=== PATIENT | female | born 1960 | race African-American/Black ===

== ENCOUNTER 2021-08-20 03:56 | Inpatient (IN) | payer MEDICARE, OTHER ==
[~2021-08-20] VITALS: Ht 162.6 cm; Wt 109.8 kg
--- NOTE | 2021-08-20 04:05 | NUR ---
Pt brought straight back to room ED1A via RA due to SOB s/p missed dialysis appt. Pt was placed onto gurney in pos of comfort and immediately connected to bedside monitor and initial VS obtained. Pt has good color and appearance, forehead feels slightly warmer than normal and pt complaining of being too warm, thermostat reduced to accommodate pt. Pt initally hypertensive and boarderline tachycardic with HR in high 90s. PE WNL besides bilat BKA and being nonambulatory. Pt resting comfortably and complaining of moderate to severe pain 04/01.
--- NOTE | 2021-08-20 04:15 | NUR ---
20g IV started on Lt AC without difficulty. Pt tolerated well.
[2021-08-20 04:33] LABS: HEMATOCRIT 34.1 % (31.2-41.9); MEAN CORPUSCULAR HEMOGLOBIN 27.1 uug (24.7-32.8); PLATELET COUNT (AUTO) 134 K/uL (179-408)
[2021-08-20 04:41] LABS: BILIRUBIN,DIRECT 0.1 mg/dL (0.0-0.2); BILIRUBIN,TOTAL 0.4 mg/dL (0.2-1.0); CREATININE 5.9 mg/dL (0.6-1.3); POTASSIUM 5.5 mmol/L (3.5-5.1); TOTAL PROTEIN, SERUM 7.3 g/dL (6.4-8.2)
--- NOTE | 2021-08-20 04:45 | NUR ---
PATIENT DOES NOT RECALL HOME MEDICATION AT THIS TIME.
[2021-08-20] MEDS ORDERED: CALCIUM GLUCONATE IV 1 GM in IV DEXTROSE 5% 50 ML IV ONE (05:30)
[2021-08-20] MEDS ORDERED: INSULIN REGULAR, HUMAN 5 UNIT in IV NORMAL SALINE 100 ML IV ONE (05:30)
[2021-08-20] MEDS ORDERED: HYDROCODONE/APAP 10-325 MG TABLET PO ONE (05:30)
[2021-08-20] MEDS ORDERED: DEXTROSE 50% 50 ML DISP.SYRIN IV ONE (05:30)
[2021-08-20] MEDS ORDERED: SODIUM POLYSTYRENE SULFONATE 15 G/60 ML LIQUID UDC PO ONE (05:30)
[2021-08-20] MEDS ORDERED: CALCIUM GLUCONATE 1 GM/10 ML VIAL IV ONE (05:40)
[2021-08-20] MEDS ORDERED: HYDROCODONE/APAP 10-325 MG TABLET ONE ×2 (05:41→20:44)
[2021-08-20] MEDS ORDERED: DEXTROSE 50% 50 ML DISP.SYRIN ONE (05:42)
[2021-08-20] MEDS ORDERED: SODIUM POLYSTYRENE SULFONATE 15 G/60 ML LIQUID UDC ONE ×2 (05:42→06:02)
[2021-08-20] MEDS: ONDANSETRON 4 MG/2 ML VIAL IV PRN ×5 (06:44→11:45)
[2021-08-20] MEDS: ACETAMINOPHEN 325 MG TABLET PO PRN (06:57)
[2021-08-20] MEDS ORDERED: ONDANSETRON 4 MG/2 ML VIAL ONE (06:58)
[2021-08-20] MEDS ORDERED: ACETAMINOPHEN 325 MG TABLET ONE (06:59)
--- NOTE | 2021-08-20 07:10 | NUR ---
Pt resting in bed, speaking on the phone, placed pt on 02 via N/C, Room air 02 sat 90%. O2 sat increased to 97%.
--- NOTE | 2021-08-20 07:45 | NUR ---
Pt is stable with high BP but asymtomatic and only complaining of moderate pain in Lt shoulder and neck but is feeling much better with marked improvement of condition. Pt will be admitted for dialysis to [facility]. Pt is in a holding pattern awaiting room assignment and transport upstairs.
--- NOTE | 2021-08-20 08:10 | NUR ---
Patient is resting comfortably in bed with eyes closed, NAD noted.
--- NOTE | 2021-08-20 09:01 | NUR ---
Pt resting in bed, easily arousable. NO SOB noted on nasal canula.
[2021-08-20] MEDS ORDERED: DEXTROSE 50% 50 ML DISP.SYRIN IV PRN (11:30)
[2021-08-20] MEDS ORDERED: DEXAMETHASONE 5 MG/5 ML LIQUID UDC PO ONE (11:30)
[2021-08-20] MEDS: BLOOD SUGAR DIAGNOSTIC 1 EACH STRIP VI SCH ×3 (11:44→21:14)
--- NOTE | 2021-08-20 12:30 | NUR ---
Lunch tray provided and pt ate 100%, w/ good appetite. Denies pain, and SOB at this time.
[2021-08-20] MEDS: DEXAMETHASONE SOD PHOSPHATE 4 MG INJ IV SCH (13:50)
[2021-08-20] MEDS ORDERED: DEXAMETHASONE SOD PHOSPHATE 10 MG INJ ONE (13:53)
--- NOTE | 2021-08-20 14:38 | NUR ---
Spoke to wire winderflaquito ETA shortly.
--- NOTE | 2021-08-20 15:54 | NUR ---
Pt is resting in bed, speaking on the phone, NAD noted at this time. Awaiting for hemodiaylsis.
--- NOTE | 2021-08-20 16:48 | NUR ---
Taty shower screen installer at the bedside.
--- NOTE | 2021-08-20 16:50 | NUR ---
Hemodialysis in progress, pt tolorating well.
--- NOTE | 2021-08-20 17:30 | NUR ---
Pt c/o generalized pain, S medina lid.
[2021-08-20] MEDS: Z GUARD REMEDY PASTE 57 GM TUBE TOP PRN (17:46)
--- NOTE | 2021-08-20 17:54 | NUR ---
Ru Kennedy called back, order received.
--- NOTE | 2021-08-20 19:28 | NUR ---
Pt is a/o denies pain, pt is currently on HD treatment.
[2021-08-20] MEDS: HYDROCODONE/APAP 10-325 MG TABLET PO PRN (20:39)
--- NOTE | 2021-08-20 20:46 | NUR ---
hemodialysis complete 3 liters were removed. Provided food tray for patient.
--- NOTE | 2021-08-20 22:51 | NUR ---
Patient transferred to hosptial bed.
--- NOTE | 2021-08-21 02:46 | NUR ---
Patient resting with eyes closed. awakens to verbal denies pain or sob.
--- NOTE | 2021-08-21 05:40 | NUR ---
pt was turned positioned, pt has a bowel movment. With turning positioning pt did not have sob.
[2021-08-21] MEDS: HYDROCODONE/APAP 10-325 MG TABLET PO PRN (07:15)
[2021-08-21] MEDS ORDERED: HYDROCODONE/APAP 10-325 MG TABLET ONE (07:28)
[2021-08-21] MEDS: BLOOD SUGAR DIAGNOSTIC 1 EACH STRIP VI SCH ×4 (07:32→20:21)
--- NOTE | 2021-08-21 08:58 | NUR ---
REPORT WAS GIVEN TO ENVIRONMENTAL GEOLOGIST. PT WAS TRANSFERED TO ROOM #316.
--- NOTE | 2021-08-21 09:05 | NUR ---
patient brought up from ER
[2021-08-21 09:10] VITALS: BP 154/69
[2021-08-21] MEDS: DEXAMETHASONE SOD PHOSPHATE 4 MG INJ IV SCH (09:10)
--- NOTE | 2021-08-21 09:10 | NUR ---
patient was admitted from ER patient is alert and oriented x4, able to make needs known. patient lives at home and has 2 caregivers. patient came in for dx covid pna currently has a productive cough present, small amount of clear sputum produced, respirations are even and non-labored, no c/o sob at this time, lungs clear bilateral, patient on 3L via nc spo2 98% at this time. patient is a dialysis patient she has a right upper arm shunt states having had dialysis 08/20, RAC 20g heplock in place and patent. bowel sounds present in all 4 quadrant, abd soft and non-tender, states being constipated last bm 08/21, states she has a bm every 3 days, patient with bilateral upper extremity strong behavioral health professional, weakness to right leg, left leg below the knee amputee. skin is intact, patient states she is anuric. patient reminded to use call light for assistance, call light within reach. side rails up x2. medication reconciliation completed, FINAL RAIL CUTTER medina aware.
[2021-08-21] MEDS ORDERED: SEVE800T7 PO (10:13)
[2021-08-21] MEDS ORDERED: ALPR2TAB2 PO (10:13)
[2021-08-21] MEDS ORDERED: CINA30TA2 PO (10:13)
[2021-08-21] MEDS ORDERED: INSU100V10 SQ (10:13)
[2021-08-21] MEDS ORDERED: OXYC-133 PO (10:13)
[2021-08-21] MEDS: INSULIN REGULAR, HUMAN 300 UNIT/3 ML VIAL SQ PRN ×3 (11:23→20:28)
[2021-08-21 12:00] VITALS: BP 146/65
[2021-08-21] MEDS: ONDANSETRON 4 MG/2 ML VIAL IV PRN (12:31)
[2021-08-21] MEDS: HEPARIN SODIUM,PORCINE 5,000 UNITS/ML VIAL SQ SCH ×2 (12:32→20:09)
--- NOTE | 2021-08-21 14:42 | NUR ---
Clinical Social Work Note Social work consult was called to discuss advance directive with patient. Spoke with patient by telephone since she has COVID. Patient is alert and oriented x4. She said she is not interested in an advance directive. Advised Vidya Kennedy PRINCIPAL SOFTWARE ARCHITECT re patient's refusal to address advanced directive.
[2021-08-21 16:12] LABS: HEMATOCRIT 33.9 % (31.2-41.9); MEAN CORPUSCULAR HEMOGLOBIN 27.4 uug (24.7-32.8); MEAN CORPUSCULAR VOLUME 85.9 fL (75.5-95.3); PLATELET COUNT (AUTO) 122 K/uL (179-408)
[2021-08-21 16:14] LABS: CREATININE 5.8 mg/dL (0.6-1.3); MAGNESIUM 2.2 mg/dL (1.8-2.4)
[2021-08-21] MEDS: MIRALAX 17 GM POWD.PACK PO PRN (16:16)
[2021-08-21] MEDS ORDERED: SODIUM POLYSTYRENE SULFONATE 15 G/60 ML LIQUID UDC PO ONE (16:45)
[2021-08-21 16:57] LABS: BAND % (MANUAL) 1 % (0-10); LYMPHOCYTES % (MANUAL) 13 % (20-40); MONOCYTES % (MANUAL) 6 % (2-10); NEUTROPHILS % (MANUAL) 80 % (42-75)
--- NOTE | 2021-08-21 17:51 | NUR ---
family sent up food for patient, hidden in bag was a foil paper with xanax pills, medication confiscated. made aware new order for xanax 2mg po x1.
[2021-08-21] MEDS ORDERED: ALPRAZOLAM 0.5 MG TABLET PO ONE (18:00)
--- NOTE | 2021-08-21 19:35 | NUR ---
Received pt resting in bed, high quinn's position. AO x 4. On 2L NC saturating at 96%, IV in L AC intact, no signs of acute distress. Call lights within reach, safety measures initiated.
[2021-08-21 20:50] VITALS: BP 157/86
[2021-08-22 01:35] VITALS: BP 145/74
[2021-08-22 04:30] VITALS: BP 159/85
[2021-08-22] MEDS: BLOOD SUGAR DIAGNOSTIC 1 EACH STRIP VI SCH ×4 (06:45→21:53)
--- NOTE | 2021-08-22 06:51 | NUR ---
Patient slept intermittently throughout the night. AO x 4. SR on tele monitor with HR at 69 bpm. On 3L NC saturating at 97%. No signs of acute distress. Small non-productive cough present. Thin clear sputum. No complaints of SOB. Skin intact. IV in L AC intact and heplock. Pt is aware of HD 08/22 at 9am. Kayexalate medication effective. Pt compliant with medication and care. Able to state all needs. Call lights within reach. Safety precautions maintained. Will endorsed to am shift.
[2021-08-22 08:50] LABS: CREATININE 6.6 mg/dL (0.6-1.3); MAGNESIUM 2.3 mg/dL (1.8-2.4); PHOSPHOROUS 7.5 mg/dL (2.5-4.9); POTASSIUM 4.9 mmol/L (3.5-5.1)
[2021-08-22 08:54] LABS: MEAN CORPUSCULAR VOLUME 85.9 fL (75.5-95.3); PLATELET COUNT (AUTO) 99 K/uL (179-408)
[2021-08-22] MEDS ORDERED: EPOETIN ALFA 10,000 UNITS/ML VIAL SQ ONE (09:00)
[2021-08-22] MEDS: DEXAMETHASONE SOD PHOSPHATE 4 MG INJ IV SCH (09:00)
[2021-08-22] MEDS: HEPARIN SODIUM,PORCINE 5,000 UNITS/ML VIAL SQ SCH ×2 (10:11→20:44)
[2021-08-22] MEDS: HYDROCODONE/APAP 10-325 MG TABLET PO PRN ×2 (10:20→20:42)
[2021-08-22] MEDS: INSULIN REGULAR, HUMAN 300 UNIT/3 ML VIAL SQ PRN ×3 (12:24→21:55)
[2021-08-22] MEDS ORDERED: levoFLOXacin 500 MG/D5W 500 MG in PREMIXED 1 EACH IV SCH ×2 (14:00→21:00)
[2021-08-22] MEDS: GUAIFENESIN LA 600 MG TABLET.SA PO SCH ×2 (14:18→20:43)
[2021-08-22] MEDS: ACETAMINOPHEN 325 MG TABLET PO PRN (17:56)
[2021-08-22] MEDS: ALPRAZOLAM 0.5 MG TABLET PO SCH (20:43)
[2021-08-22] MEDS: Z GUARD REMEDY PASTE 57 GM TUBE TOP PRN (21:55)
[2021-08-23 00:43] VITALS: BP 147/65
[2021-08-23 04:26] VITALS: BP 130/74
[2021-08-23] MEDS: BLOOD SUGAR DIAGNOSTIC 1 EACH STRIP VI SCH ×4 (07:30→20:31)
[2021-08-23 07:43] LABS: HEMATOCRIT 31.1 % (31.2-41.9); PLATELET COUNT (AUTO) 93 K/uL (179-408)
[2021-08-23 07:57] LABS: CREATININE 5.4 mg/dL (0.6-1.3); MAGNESIUM 2.2 mg/dL (1.8-2.4); NEUTROPHILS % (MANUAL) 0 % (42-75); PHOSPHOROUS 5.7 mg/dL (2.5-4.9); POTASSIUM 3.9 mmol/L (3.5-5.1)
[2021-08-23] MEDS: DEXAMETHASONE SOD PHOSPHATE 4 MG INJ IV SCH (08:06)
[2021-08-23] MEDS: HEPARIN SODIUM,PORCINE 5,000 UNITS/ML VIAL SQ SCH ×2 (08:07→21:00)
[2021-08-23] MEDS: GUAIFENESIN LA 600 MG TABLET.SA PO SCH ×2 (08:07→20:17)
[2021-08-23] MEDS: INSULIN REGULAR, HUMAN 300 UNIT/3 ML VIAL SQ PRN ×2 (08:10→17:20)
[2021-08-23 08:19] VITALS: BP 134/68
[2021-08-23] MEDS ORDERED: EPOETIN ALFA 10,000 UNITS/ML VIAL SQ ONE (11:00)
[2021-08-23] MEDS: CALCIUM ACETATE 667 MG CAP/TAB PO SCH ×2 (11:37→17:13)
[2021-08-23 13:06] LABS: HEPATITIS B SURFACE AG Negative (Negative)
[2021-08-23 13:11] VITALS: BP 135/68
[2021-08-23] MEDS: ALPRAZOLAM 0.5 MG TABLET PO PRN (14:14)
[2021-08-23 16:43] VITALS: BP 160/84
[2021-08-23 20:56] VITALS: BP 165/78
[2021-08-23] MEDS: ALPRAZOLAM 0.5 MG TABLET PO SCH (21:00)
--- NOTE | 2021-08-23 21:36 | NUR ---
Patient in bed.O2 at 2LPM via NC.No s/s of distress noted.Iv on left Fa intact.Av shunt on right upper arm.Left BKA.NSR on Tele.Patient's dtr came to borrow patient's credit card.Handed it to the daughter and came back after few minutes with food along with the credit card.Returned credit card to patient .Witnessed by Charged nurse.Patient's Plt trending down.Welfare Interviewer Marcia notified with order to hold heparin at this time.Patient refused xanax.Stated she doesn't it need for now.Will continue to monitor . Call light with in reach.
[2021-08-23] MEDS: ACETAMINOPHEN 325 MG TABLET PO PRN (21:38)
[2021-08-24 00:58] VITALS: BP 134/83
[2021-08-24] MEDS: HYDROCODONE/APAP 10-325 MG TABLET PO PRN (03:21)
[2021-08-24] MEDS: MIRALAX 17 GM POWD.PACK PO PRN ×2 (03:31→22:58)
[2021-08-24 04:49] VITALS: BP 109/67
[2021-08-24] MEDS: BLOOD SUGAR DIAGNOSTIC 1 EACH STRIP VI SCH ×4 (06:34→22:29)
[2021-08-24 07:48] LABS: HEMATOCRIT 31.4 % (31.2-41.9); MEAN CORPUSCULAR HEMOGLOBIN 26.9 uug (24.7-32.8); MEAN CORPUSCULAR VOLUME 84.9 fL (75.5-95.3); PLATELET COUNT (AUTO) 99 K/uL (179-408)
[2021-08-24 08:14] LABS: MAGNESIUM 2.1 mg/dL (1.8-2.4); PHOSPHOROUS 6.1 mg/dL (2.5-4.9); POTASSIUM 4.6 mmol/L (3.5-5.1)
[2021-08-24 08:27] LABS: CREATININE 7.9 mg/dL (0.6-1.3)
[2021-08-24] MEDS: GUAIFENESIN LA 600 MG TABLET.SA PO SCH ×2 (08:58→20:37)
[2021-08-24] MEDS: DEXAMETHASONE SOD PHOSPHATE 4 MG INJ IV SCH (08:59)
[2021-08-24] MEDS: CALCIUM ACETATE 667 MG CAP/TAB PO SCH ×3 (08:59→17:29)
[2021-08-24] MEDS: HEPARIN SODIUM,PORCINE 5,000 UNITS/ML VIAL SQ SCH ×2 (09:00→21:00)
[2021-08-24] MEDS ORDERED: LACTULOSE 20 G/30 ML LIQUID UDC PO ONE (10:30)
[2021-08-24 12:00] VITALS: BP 141/73
[2021-08-24] MEDS ORDERED: HYDROCODONE/APAP 10-325 MG TABLET PO PRN (12:00)
[2021-08-24] MEDS: CINACALCET HCL 30 MG TABLET PO SCH (12:23)
[2021-08-24] MEDS: OXYCODONE/APAP 5-325 MG TABLET PO PRN (12:52)
[2021-08-24] MEDS: INSULIN REGULAR, HUMAN 300 UNIT/3 ML VIAL SQ PRN ×3 (12:53→22:32)
[2021-08-24 15:45] LABS: NEUTROPHILS % (MANUAL) 0 % (42-75)
[2021-08-24 16:00] VITALS: BP 167/86
[2021-08-24] MEDS ORDERED: SEVELAMER CARBONATE 800 MG TABLET PO SCH (16:30)
--- NOTE | 2021-08-24 19:00 | NUR ---
Received pt resting in bed, AOX4, able to make needs known, with episodes of aggression with nursing interventions. On tele monitor, showing sinus rhythm with HR of 85bpm, On room air, saturating at 94-96% IV in L AC intact and patent. R UA AV shunt, bruit and thrill present. Patient denies SOB, chest pain or dizziness. BP elevated, at 162/86mmHg. DIESEL PLANT OPERATOR manager regional notified, and ordered hydralazine 10mg PRN for SBP >160mmhg. PRN medication given and tolerated well. Call lights within reach, safety measures initiated.
--- NOTE | 2021-08-24 19:30 | NUR ---
Notified MD regarding trending down platelets, held heparin sodium 5,000/1ml. MD notified to review AM labs tomorrow and monitor if platelets continue to trend down.
[2021-08-24 20:21] VITALS: BP 167/86
[2021-08-24] MEDS: ALPRAZOLAM 0.5 MG TABLET PO SCH (20:37)
[2021-08-24] MEDS ORDERED: levoFLOXacin 500 MG TABLET PO SCH (21:00)
[2021-08-24] MEDS ORDERED: hydrALAZINE HCL 10 MG TABLET PO PRN (22:00)
[2021-08-25] VITALS: BP 168/87
--- NOTE | 2021-08-25 | NUR ---
Patient's temperature was slightly elevated at 99.1. Tylenol 325mg PO (2 tablets), were given and tolerated well.
[2021-08-25] MEDS: ACETAMINOPHEN 325 MG TABLET PO PRN ×2 (00:50→04:15)
[2021-08-25 04:18] VITALS: BP 155/80
[2021-08-25] MEDS: BLOOD SUGAR DIAGNOSTIC 1 EACH STRIP VI SCH ×3 (06:43→16:30)
--- NOTE | 2021-08-25 07:04 | NUR ---
Patient slept intermittently through the night. AAOX4. Complained of pain, gave tylenol 325mg PO (2tablets), tolerated well. On RA, saturating at 94%. No SOB noted. On tele monitor, showing SR with HR of 78bpm. IV access patent and intact. Patient was informed regarding scheduled hemodialysis, patient verbalized understanding, consent signed and attached to chart. COVID antigen test taken, sent to lab. Encouraged patient to practice breathing using Incentive Spirometer, however, patient refused despite taught of the rationale. Compliant with medications. Safety measures maintained. Will endorse to day shift.
[2021-08-25 07:46] LABS: HEMATOCRIT 32.8 % (31.2-41.9); MEAN CORPUSCULAR HEMOGLOBIN 26.9 uug (24.7-32.8); PLATELET COUNT (AUTO) 101 K/uL (179-408)
[2021-08-25 08:06] LABS: MAGNESIUM 2.2 mg/dL (1.8-2.4); PHOSPHOROUS 6.7 mg/dL (2.5-4.9); POTASSIUM 5.1 mmol/L (3.5-5.1)
[2021-08-25] MEDS: DEXAMETHASONE SOD PHOSPHATE 4 MG INJ IV SCH (08:55)
[2021-08-25] MEDS: GUAIFENESIN LA 600 MG TABLET.SA PO SCH (08:55)
[2021-08-25] MEDS: CALCIUM ACETATE 667 MG CAP/TAB PO SCH ×3 (08:56→18:11)
[2021-08-25] MEDS: CINACALCET HCL 30 MG TABLET PO SCH (08:56)
[2021-08-25] MEDS: HEPARIN SODIUM,PORCINE 5,000 UNITS/ML VIAL SQ SCH (08:57)
[2021-08-25 10:42] LABS: CREATININE 9.3 mg/dL (0.6-1.3)
[2021-08-25] MEDS ORDERED: LEVO500T90 PO (11:02)
[2021-08-25] MEDS ORDERED: CALC667C6 PO (11:02)
[2021-08-25] MEDS ORDERED: DEXA4TAB PO (11:06)
[2021-08-25 11:38] VITALS: BP 151/79
[2021-08-25] MEDS: INSULIN REGULAR, HUMAN 300 UNIT/3 ML VIAL SQ PRN (12:16)
[2021-08-25] MEDS: OXYCODONE/APAP 5-325 MG TABLET PO PRN (12:18)
[2021-08-25] MEDS: ALPRAZOLAM 0.5 MG TABLET PO PRN (13:07)
--- NOTE | 2021-08-25 16:45 | NUR ---
PATIENT REFUSED BLOOD SUgar checks stated going home and will not eat dinner encouraged to eat before leaving.
--- NOTE | 2021-08-25 19:50 | NUR ---
Report given to [facility] paramedics who is picking up patient.
[2021-08-25 20:03] LABS: NEUTROPHILS % (MANUAL) 0 % (42-75)
--- NOTE | 2021-08-25 20:23 | NUR ---
Patient picked up by [facility] ambulance accompanied by 2 paramedics via gurney. Patient AAOx4. In no apparent distress. VS WNL. Paper work sent with patient. Patient discharge to home with private caregiver.
[2021-08-29] MEDS ORDERED: DEXA4TAB PO (11:42)
== END 2021-08-25 20:00 | disposition home health service (06) | DRG 177 ==
LOC: ER 04:00 → TRANSITION 13:31 → TELE3 08-21 08:24 → MEDSURG3 08-25 10:10
PROVIDERS: ADMIT Nurse Practitioner Acute Care; ATTEND Nurse Practitioner Acute Care
PROC: 5A1D70Z Performance of Urinary Filtration, Intermittent, Less than 6 Hours Per Day (ICD-10-PCS; principal; 2021-08-20)
PROC: 5A1D70Z Performance of Urinary Filtration, Intermittent, Less than 6 Hours Per Day (ICD-10-PCS; 2021-08-22)
PROC: 5A1D70Z Performance of Urinary Filtration, Intermittent, Less than 6 Hours Per Day (ICD-10-PCS; 2021-08-25)
DX: U07.1 COVID-19 (principal); J12.82 Pneumonia due to coronavirus disease 2019; N18.6 End stage renal disease; J96.01 Acute respiratory failure with hypoxia; D61.818 Other pancytopenia; D68.59 Other primary thrombophilia; E44.1 Mild protein-calorie malnutrition; I12.0 Hypertensive chronic kidney disease with stage 5 chronic kidney disease or end stage renal disease; Z89.512 Acquired absence of left leg below knee; E11.22 Type 2 diabetes mellitus with diabetic chronic kidney disease; Z99.2 Dependence on renal dialysis; E11.51 Type 2 diabetes mellitus with diabetic peripheral angiopathy without gangrene; E66.9 Obesity, unspecified; E87.5 Hyperkalemia; G89.29 Other chronic pain; K59.00 Constipation, unspecified; M89.8X9 Other specified disorders of bone, unspecified site; Z87.891 Personal history of nicotine dependence; D64.9 Anemia, unspecified; M54.9 Dorsalgia, unspecified; Z88.5 Allergy status to narcotic agent; Z80.9 Family history of malignant neoplasm, unspecified; Z82.49 Family history of ischemic heart disease and other diseases of the circulatory system
CPT/HCPCS: 36415; 70030-TC; 71045; 83615; 83735; 84100; 85025; 86140; 86706; 87340; 87350; 93005; A4663; A6209; G0378; J0610; J0885; J1100; J1644; J1815; J1956; J2405; J3490; J7030

== ENCOUNTER 2021-08-26 04:56 | Inpatient (IN) | payer OTHER ==
[~2021-08-26] VITALS: Ht 165.1 cm; Wt 101.8 kg
[~2021-08-26 04:56] MED LIST: ALPR2TAB2 PO; CALC667C6 PO; CINA30TA2 PO; DEXA4TAB PO; INSU100V10 SQ; LEVO500T90 PO; OXYC-133 PO; SEVE800T7 PO
--- NOTE | 2021-08-26 05:17 | NUR ---
pt a/o pt with cough, bib ra. States was discharged from this hospital yesterday. EKG performed. Dr. Thorne provided with EKG she is aware of patient.
[2021-08-26 05:53] LABS: HEMATOCRIT 34.4 % (31.2-41.9); MEAN CORPUSCULAR HEMOGLOBIN 26.9 uug (24.7-32.8); MEAN CORPUSCULAR VOLUME 84.3 fL (75.5-95.3); PLATELET COUNT (AUTO) 119 K/uL (179-408)
[2021-08-26 06:05] LABS: BILIRUBIN,DIRECT 0.2 mg/dL (0.0-0.2); BILIRUBIN,TOTAL 0.6 mg/dL (0.2-1.0); CREATININE 6.3 mg/dL (0.6-1.3); POTASSIUM 4.4 mmol/L (3.5-5.1); TOTAL PROTEIN, SERUM 7.8 g/dL (6.4-8.2)
--- NOTE | 2021-08-26 06:48 | NUR ---
Report given to Jad PURI.
[2021-08-26] MEDS ORDERED: DEXAMETHASONE SOD PHOSPHATE 4 MG INJ IV ONE (07:00)
--- NOTE | 2021-08-26 07:16 | NUR ---
PT IS RESTING IN BED CONFORTABLY. NO S/S OF ACUTE DISTRESS AT THIS TIME. CONTINUE TO MONITOR THE PT.
[2021-08-26] MEDS ORDERED: DEXAMETHASONE SOD PHOSPHATE 10 MG INJ ONE ×2 (07:18→13:11)
[2021-08-26] MEDS ORDERED: ONDANSETRON 4 MG/2 ML VIAL IV PRN (12:00)
[2021-08-26] MEDS ORDERED: Z GUARD REMEDY PASTE 57 GM TUBE TOP PRN (12:00)
[2021-08-26] MEDS: DEXAMETHASONE SOD PHOSPHATE 4 MG INJ IV SCH (12:00)
[2021-08-26] MEDS: levoFLOXacin 500 MG TABLET PO SCH (12:00)
[2021-08-26] MEDS ORDERED: ALPRAZOLAM 0.25 MG TABLET PO PRN (12:00)
[2021-08-26] MEDS ORDERED: levoFLOXacin 500 MG TABLET ONE (13:11)
[2021-08-26] MEDS ORDERED: ALPRAZOLAM 0.5 MG TABLET ONE (13:12)
[2021-08-26] MEDS ORDERED: HYDROCODONE/APAP 5-325MG TABLET ONE (13:13)
[2021-08-26] MEDS: HYDROCODONE/APAP 5-325MG TABLET PO PRN ×2 (13:13→23:00)
[2021-08-26] MEDS ORDERED: ONDANSETRON 4 MG/2 ML VIAL ONE (13:13)
--- NOTE | 2021-08-26 13:20 | NUR ---
REPORT WAQS GIVEN TO ENTERPRISE APPLICATION ADMINISTRATOR. PT WAS TRANSFERED TO ROOM #[id number].
[2021-08-26] MEDS ORDERED: ALPRAZOLAM 0.5 MG TABLET PO PRN (13:54)
--- NOTE | 2021-08-26 14:15 | NUR ---
received fro ER per rupert awake alert and oriented, left leg BKA, initial assessment done, on 2l/nc-sat at 97%, on droplet isolation for Covid, oriented to room setup and bed controls and call button, needs attended
[2021-08-26 14:30] VITALS: BP 141/75
[2021-08-26] MEDS: CALCIUM ACETATE 667 MG CAP/TAB PO SCH ×2 (14:39→17:50)
[2021-08-26 16:00] VITALS: BP 158/75
[2021-08-26] MEDS: SEVELAMER CARBONATE 800 MG TABLET PO SCH (17:17)
--- NOTE | 2021-08-26 18:36 | NUR ---
no distress noted, all needs attended and met, call light within reach
[2021-08-26 20:00] VITALS: BP 138/57
[2021-08-26] MEDS ORDERED: INSULIN DETEMIR 300 UNIT/3 ML CARTRIDGE SQ SCH (21:00)
[2021-08-26] MEDS: INSULIN GLARGINE,HUM 300 UNITS/3 ML CARTRIDGE SQ SCH (22:39)
[2021-08-27] VITALS: BP 130/50
[2021-08-27 04:00] VITALS: BP 120/60
[2021-08-27] MEDS: PANTOPRAZOLE SODIUM 40 MG TABLET.DR PO SCH (06:14)
[2021-08-27] MEDS: SEVELAMER CARBONATE 800 MG TABLET PO SCH ×3 (06:50→16:15)
[2021-08-27 07:22] LABS: HEMATOCRIT 31.4 % (31.2-41.9); MEAN CORPUSCULAR HEMOGLOBIN 27.1 uug (24.7-32.8); MEAN CORPUSCULAR VOLUME 85.8 fL (75.5-95.3); PLATELET COUNT (AUTO) 115 K/uL (179-408)
[2021-08-27 07:41] LABS: CREATININE 7.2 mg/dL (0.6-1.3); MAGNESIUM 2.5 mg/dL (1.8-2.4); PHOSPHOROUS 7.8 mg/dL (2.5-4.9); POTASSIUM 5.2 mmol/L (3.5-5.1)
--- NOTE | 2021-08-27 08:00 | NUR ---
Awake, alert, oriented x3, Anxious. On moderate high back rest. O2 titrated to 2L/NC with O2 sat of 95%
[2021-08-27 09:00] VITALS: BP 101/57
[2021-08-27] MEDS: CINACALCET HCL 30 MG TABLET PO SCH (09:27)
[2021-08-27] MEDS: CALCIUM ACETATE 667 MG CAP/TAB PO SCH ×3 (09:27→17:13)
[2021-08-27] MEDS: HYDROCODONE/APAP 5-325MG TABLET PO PRN ×2 (09:28→20:52)
[2021-08-27] MEDS: DEXAMETHASONE SOD PHOSPHATE 4 MG INJ IV SCH (09:28)
[2021-08-27 11:55] VITALS: BP 112/56
--- NOTE | 2021-08-27 12:30 | NUR ---
Anxious, Xanax po given as ordered. Hemodialysis started
--- NOTE | 2021-08-27 16:00 | NUR ---
Hemodialysis done with 2 L output. With BM, incontinence care and sponge bath done. Complaining of burning in the perineal area, Z guard applied. Repositioned comfortably.
[2021-08-27 16:48] VITALS: BP 137/69
[2021-08-27] MEDS ORDERED: GABA300C PO (16:59)
--- NOTE | 2021-08-27 17:51 | NUR ---
O2 at 2L/NC, with O2 sat of 98%. Asking for food from outside.
--- NOTE | 2021-08-27 19:35 | NUR ---
Received pt awake, lying in bed. Alert and oriented to name, time and place. Able to state needs. No complaints at this time. On 2L NC saturating at 96%. No signs of acute distress. Call lights within reach, safety measures initiated.
[2021-08-27] MEDS: HEPARIN SODIUM,PORCINE 5,000 UNITS/ML VIAL SQ SCH (20:36)
[2021-08-27] MEDS: INSULIN GLARGINE,HUM 300 UNITS/3 ML CARTRIDGE SQ SCH (20:37)
[2021-08-27 21:19] VITALS: BP 128/71
[2021-08-27] MEDS ORDERED: DEXTROSE 50% 50 ML DISP.SYRIN IV PRN (23:00)
[2021-08-28 00:34] VITALS: BP 118/45
[2021-08-28] MEDS: HYDROCODONE/APAP 5-325MG TABLET PO PRN ×4 (02:37→19:53)
[2021-08-28 04:35] VITALS: BP 112/46
[2021-08-28] MEDS: ACETAMINOPHEN 325 MG TABLET PO PRN ×2 (05:13→08:30)
[2021-08-28] MEDS: SEVELAMER CARBONATE 800 MG TABLET PO SCH ×3 (06:34→17:09)
[2021-08-28] MEDS: BLOOD SUGAR DIAGNOSTIC 1 EACH STRIP VI SCH ×4 (06:34→20:34)
[2021-08-28] MEDS: PANTOPRAZOLE SODIUM 40 MG TABLET.DR PO SCH (06:34)
[2021-08-28 06:43] LABS: HEMATOCRIT 30.4 % (31.2-41.9); MEAN CORPUSCULAR HEMOGLOBIN 27.5 uug (24.7-32.8); MEAN CORPUSCULAR VOLUME 86.6 fL (75.5-95.3); PLATELET COUNT (AUTO) 123 K/uL (179-408)
[2021-08-28 06:45] LABS: CREATININE 6.3 mg/dL (0.6-1.3); PHOSPHOROUS 5.3 mg/dL (2.5-4.9); POTASSIUM 4.8 mmol/L (3.5-5.1)
--- NOTE | 2021-08-28 06:46 | NUR ---
Slept intermittently through the night. On 2L NC saturating at 96%. Sinus rhythm on tele monitor. C/O pain and discomfort around back area and buttocks. Colony and Z guard given for relief. No signs of acute distress. Educated importances of IS use and dietary choices. Non compliant with diet. IS placed by bedside within reach. Call lights within reach. Safety measures maintained. Will endorse to am shift.
--- NOTE | 2021-08-28 07:30 | NUR ---
Received report from awake overnight monitor nurseSofía RN. Patient currently receiving 2L of oxygen via Nasal Canula and saturating at 98%. IV site intact and patent. Patient showing no signs of distress or discomfort. Bed left in lowest position with call light within reach. Will continue to monitor patient throughout shift.
[2021-08-28] MEDS: INSULIN REGULAR, HUMAN 300 UNIT/3 ML VIAL SQ PRN ×4 (07:50→20:35)
[2021-08-28] MEDS: HEPARIN SODIUM,PORCINE 5,000 UNITS/ML VIAL SQ SCH ×2 (08:30→20:20)
[2021-08-28] MEDS: DEXAMETHASONE SOD PHOSPHATE 4 MG INJ IV SCH (08:48)
[2021-08-28] MEDS: CALCIUM ACETATE 667 MG CAP/TAB PO SCH ×3 (08:48→17:09)
[2021-08-28] MEDS: CINACALCET HCL 30 MG TABLET PO SCH (08:49)
[2021-08-28] MEDS: levoFLOXacin 500 MG TABLET PO SCH (11:25)
[2021-08-28 15:27] VITALS: BP 107/62
--- NOTE | 2021-08-28 18:54 | NUR ---
Patient resting in bed comfortably with lights on. Bed left in lowest position with call light within reach. Patient receiving 2L of oxygen via Nasal Canula currently saturating at 98%. Will endorse to restaurant shift supervisor to begin weening off oxygen. IV site intact and patent. Comfort measures provided.
[2021-08-28] MEDS: INSULIN GLARGINE,HUM 300 UNITS/3 ML CARTRIDGE SQ SCH (20:44)
--- NOTE | 2021-08-29 00:38 | NUR ---
Received pt awake sitting on bed with no respiratory distress noted, on O2 at 2LPM via NC saturating at 97%. NSR on TELE. She is alert and oriented x4, able to make needs known. Buda PRN given d/t pain 04/01. IV line on L FA G#20 and R AV fistula intact. Due medications given on time and tolerated well. Assisted in turning and repositioning. All needs attended. Call light placed within reach. Will continue to monitor.
[2021-08-29] MEDS: ACETAMINOPHEN 325 MG TABLET PO PRN (02:27)
[2021-08-29] MEDS: HYDROCODONE/APAP 5-325MG TABLET PO PRN ×3 (04:30→20:19)
[2021-08-29] MEDS: PANTOPRAZOLE SODIUM 40 MG TABLET.DR PO SCH (06:16)
[2021-08-29] MEDS: SEVELAMER CARBONATE 800 MG TABLET PO SCH ×3 (06:37→17:54)
[2021-08-29] MEDS: BLOOD SUGAR DIAGNOSTIC 1 EACH STRIP VI SCH ×4 (06:37→20:13)
--- NOTE | 2021-08-29 06:46 | NUR ---
Pt slept intermittently throughout the nigth, on O2 at 2LPM via NC saturating at 99%. NSR on TELE. She is alert and oriented x4, able to make needs known. Medicated pain x2, noted effective. IV line on L FA G#20 and R AV fistula intact. Due medications given on time and tolerated well. Accuchecks done, BS 180. Assisted in turning and repositioning. All needs attended. Call light placed within reach. Frequent visual checks done. Will endorse to next shift.
[2021-08-29] MEDS: INSULIN REGULAR, HUMAN 300 UNIT/3 ML VIAL SQ PRN ×4 (07:48→20:15)
--- NOTE | 2021-08-29 08:17 | NUR ---
Received patient report from reheater nurse. Arrived to patients room sleeping comfortably. IV site intact and patent. Patient currently saturating at 98% on 2L of Oxygen via Nasal Canula. Bed left in lowest position with call light within reach. Will continue to monitor patient throughout shift.
[2021-08-29] MEDS: CALCIUM ACETATE 667 MG CAP/TAB PO SCH ×3 (10:29→17:54)
[2021-08-29] MEDS: CINACALCET HCL 30 MG TABLET PO SCH (10:29)
[2021-08-29] MEDS: DEXAMETHASONE SOD PHOSPHATE 4 MG INJ IV SCH (10:30)
[2021-08-29] MEDS: HEPARIN SODIUM,PORCINE 5,000 UNITS/ML VIAL SQ SCH ×2 (10:31→20:11)
[2021-08-29] MEDS ORDERED: DEXA4TAB PO (11:42)
[2021-08-29 12:00] VITALS: BP 116/67
[2021-08-29 16:00] VITALS: BP 113/61
--- NOTE | 2021-08-29 18:46 | NUR ---
Patient awaiting discharge. Awaiting phone call from [facility] that are setting up discharge transportation. Waiting due to patient's oxygen tank that will be sent to their home. Discharge paper work in order. Will endorse to retail shift leader nurse. Patient currently saturating at 96% on room air. Bed left in lowest position with call light within reach. Will endorse information to retail shift leader nurse
--- NOTE | 2021-08-29 19:00 | NUR ---
Received patient lying in bed. AAOX4. Off of telemonitor. On 2L O2 via NC saturating at 99%. Patient denies chest pain, SOB or dizziness. However, she report back pain with rate of 8 out of 10. Pt. ready for D/C, D/C instructions already given. IV access removed. ID band removed. Will await garbage pick up worker.
[2021-08-29] MEDS: INSULIN GLARGINE,HUM 300 UNITS/3 ML CARTRIDGE SQ SCH (20:12)
[2021-08-29 20:40] VITALS: BP 154/69
--- NOTE | 2021-08-29 22:30 | NUR ---
Pt picked up by [facility] at 10:30pm. Patient's belonging list done and signed by patient. V/S are within normal limits, however, patient's BP was slightly elevated. Instructed patient to do deep breathing exercise and try to relax.
== END 2021-08-29 22:30 | disposition home health service (06) | DRG 177 ==
LOC: ER 04:58 → TELE3 13:50
PROVIDERS: ATTEND Internal Medicine
PROC: 5A1D70Z Performance of Urinary Filtration, Intermittent, Less than 6 Hours Per Day (ICD-10-PCS; principal; 2021-08-27)
DX: U07.1 COVID-19 (principal); J12.82 Pneumonia due to coronavirus disease 2019; J96.01 Acute respiratory failure with hypoxia; N18.6 End stage renal disease; D68.59 Other primary thrombophilia; E44.1 Mild protein-calorie malnutrition; D61.818 Other pancytopenia; I12.0 Hypertensive chronic kidney disease with stage 5 chronic kidney disease or end stage renal disease; E11.22 Type 2 diabetes mellitus with diabetic chronic kidney disease; Z99.2 Dependence on renal dialysis; Z79.4 Long term (current) use of insulin; E87.5 Hyperkalemia; E88.09 Other disorders of plasma-protein metabolism, not elsewhere classified; E66.9 Obesity, unspecified; Z68.37 Body mass index [BMI] 37.0-37.9, adult; E83.9 Disorder of mineral metabolism, unspecified; Z89.512 Acquired absence of left leg below knee; G89.29 Other chronic pain
CPT/HCPCS: 36415; 70030-TC; 71045; 83605; 83735; 84100; 85025; 85730; 87040; 93005; A4663; G0378; J1100; J1644; J1815; J2405

== ENCOUNTER 2023-08-08 14:36 | Inpatient (IN) | payer MEDICARE, OTHER ==
[~2023-08-08] VITALS: Ht 162.6 cm; Wt 63.5 kg
[~2023-08-08 14:36] MED LIST changes: +GABA300C PO
[2023-08-08] MEDS ORDERED: SODI5POW2 PO (15:11)
[2023-08-08] MEDS ORDERED: HYDR-3980 PO (15:11)
[2023-08-08] MEDS ORDERED: METO25TA6 PO (15:11)
[2023-08-08] MEDS ORDERED: GABA-532 PO (15:11)
[2023-08-08] MEDS ORDERED: [UNRECOGNIZED DRUG - CODE] (15:12)
[2023-08-08] MEDS ORDERED: LIDO700A30 TOP (15:12)
[2023-08-08 15:28] LABS: HEMOGLOBIN 12.2 g/dL (10.9-14.3); RED BLOOD CELL COUNT(AUTO) 4.36 MIL/uL (3.63-4.92); RED CELL DISTRIBUTION WIDTH 17.2 % (12.3-17.7)
[2023-08-08 15:38] LABS: BASOPHILS % (AUTO) 1.1 % (0.0-2.0); DIFFERENTIAL COMMENT 0; EOSINOPHILS # (AUTO) 0.1 K/uL (0.0-0.7); EOSINOPHILS % (AUTO) 1.9 % (0.0-7.0); LYMPHOCYTES # (AUTO) 0.7 K/uL (0.8-4.8); MEAN CORPUSCULAR HGB CONC 30 g/dL (32.3-35.6); MEAN CORPUSCULAR VOLUME 93.8 fL (75.5-95.3); MONOCYTES # (AUTO) 0.4 K/uL (0.1-1.30); MONOCYTES % (AUTO) 10.3 % (0.0-11.0); NEUTROPHILS # (AUTO) 2.5 K/uL (1.8-8.9); NEUTROPHILS % (AUTO) 67.7 % (38.5-71.5); PLATELET COUNT (AUTO) 158 K/uL (179-408); WHITE BLOOD COUNT (AUTO) 3.7 K/uL (3.8-11.8)
[2023-08-08 15:39] LABS: CALCIUM 8.5 mg/dL (8.5-10.1); CARBON DIOXIDE 25 mmol/L (21-32); CHLORIDE 100 mmol/L (98-107); CREATININE 6.8 mg/dL (0.6-1.3); GLUCOSE 121 mg/dL (74-106); POTASSIUM 3.2 mmol/L (3.5-5.1); SODIUM SERUM 137 mmol/L (136-145); UREA NITROGEN, BLOOD 41 mg/dL (7-18)
[2023-08-08 15:41] LABS: AMMONIA < 10 umol/L (11-32)
[2023-08-08 15:47] LABS: ETHANOL < 3 MG/DL (0-10)
[2023-08-08 15:52] LABS: THYROID STIMULATING HORMONE 0.072 mIU/mL (0.358-3.740)
[2023-08-08 15:57] LABS: ACETAMINOPHEN < 2.0 ug/mL (10-30); ALANINE AMINOTRANSFERASE 15 U/L (14-59); ALBUMIN 3.6 g/dL (3.4-5.0); ALKALINE PHOSPHATASE 162 U/L (50-136); ASPARTATE AMINOTRANSFERASE 15 U/L (15-37); BILIRUBIN,DIRECT 0.1 mg/dL (0.0-0.2); BILIRUBIN,TOTAL 0.3 mg/dL (0.2-1.0); TOTAL PROTEIN, SERUM 7.3 g/dL (6.4-8.2)
[2023-08-08] MEDS ORDERED: CEFTAZIDIME 1 G VIAL ONE ×2 (16:14→16:18)
[2023-08-08] MEDS ORDERED: CEFTAZIDIME 2 G in IV DEXTROSE 5% 100 ML IV ONE (16:15)
[2023-08-08] MEDS ORDERED: hydrALAZINE HCL 20 MG/1 ML VIAL ONE (17:49)
[2023-08-08] MEDS ORDERED: hydrALAZINE HCL 20 MG/1 ML VIAL IV PRN ×2 (18:00→21:00)
[2023-08-08] MEDS ORDERED: ONDANSETRON 4 MG/2 ML VIAL IV PRN (18:45)
[2023-08-08] MEDS ORDERED: DEXTROSE 50% 50 ML DISP.SYRIN IV PRN (18:45)
[2023-08-08] MEDS ORDERED: REMEDY ESSENTIAL ZINC PASTE 113 GM TP PRN (18:45)
[2023-08-08] MEDS: BLOOD SUGAR DIAGNOSTIC 1 EACH STRIP VI SCH (21:02)
[2023-08-08] MEDS ORDERED: HEPARIN SODIUM,PORCINE 5,000 UNITS/ML VIAL ONE (21:05)
[2023-08-08] MEDS ORDERED: METOPROLOL TARTRATE 50 MG TABLET ONE (21:05)
[2023-08-08] MEDS: HEPARIN SODIUM,PORCINE 5,000 UNITS/ML VIAL SQ SCH (21:21)
[2023-08-08] MEDS: METOPROLOL TARTRATE 25 MG TABLET PO SCH (21:22)
[2023-08-08] MEDS ORDERED: QUETIAPINE FUMARATE 25 MG TABLET ONE (21:30)
[2023-08-08] MEDS ORDERED: TEMAZEPAM 7.5 MG CAPSULE ONE (21:31)
[2023-08-08] MEDS: QUETIAPINE FUMARATE 25 MG TABLET PO PRN (21:40)
[2023-08-08] MEDS: TEMAZEPAM 7.5 MG CAPSULE PO PRN (21:42)
[2023-08-09] MEDS ORDERED: hydrALAZINE HCL 20 MG/1 ML VIAL ONE (02:11)
[2023-08-09 06:46] LABS: BASOPHILS % (AUTO) 0.5 % (0.0-2.0); DIFFERENTIAL COMMENT 0; EOSINOPHILS # (AUTO) 0.1 K/uL (0.0-0.7); EOSINOPHILS % (AUTO) 1.6 % (0.0-7.0); HEMATOCRIT 42.4 % (31.2-41.9); HEMOGLOBIN 12.8 g/dL (10.9-14.3); LYMPHOCYTES % (AUTO) 20.4 % (20.5-51.5); MEAN CORPUSCULAR HEMOGLOBIN 28.2 uug (24.7-32.8); MEAN CORPUSCULAR HGB CONC 30 g/dL (32.3-35.6); MEAN CORPUSCULAR VOLUME 93.5 fL (75.5-95.3); MONOCYTES # (AUTO) 0.6 K/uL (0.1-1.30); MONOCYTES % (AUTO) 11.9 % (0.0-11.0); NEUTROPHILS # (AUTO) 3.1 K/uL (1.8-8.9); NEUTROPHILS % (AUTO) 65.6 % (38.5-71.5); PLATELET COUNT (AUTO) 164 K/uL (179-408); RED BLOOD CELL COUNT(AUTO) 4.54 MIL/uL (3.63-4.92); RED CELL DISTRIBUTION WIDTH 17.1 % (12.3-17.7); WHITE BLOOD COUNT (AUTO) 4.7 K/uL (3.8-11.8)
[2023-08-09 06:49] LABS: CALCIUM 9.4 mg/dL (8.5-10.1); MAGNESIUM 2.7 mg/dL (1.8-2.4); PHOSPHOROUS 5.3 mg/dL (2.5-4.9); POTASSIUM 3.5 mmol/L (3.5-5.1)
[2023-08-09 06:51] LABS: CREATININE 7.9 mg/dL (0.6-1.3)
[2023-08-09] MEDS ORDERED: PANTOPRAZOLE SODIUM 40 MG TABLET.DR PO ONE (07:08)
[2023-08-09] MEDS: PANTOPRAZOLE SODIUM 40 MG TABLET.DR PO SCH (07:19)
[2023-08-09] MEDS ORDERED: SEVELAMER CARBONATE 800 MG TABLET PO SCH (07:30)
[2023-08-09] MEDS ORDERED: CALCIUM ACETATE 667 MG CAP/TAB PO SCH (08:00)
[2023-08-09] MEDS: BLOOD SUGAR DIAGNOSTIC 1 EACH STRIP VI SCH ×4 (08:21→21:00)
[2023-08-09] MEDS ORDERED: LIDOCAINE 5% PATCH TD SCH ×2 (09:00)
[2023-08-09] MEDS ORDERED: CINACALCET HCL 30 MG TABLET PO SCH (09:00)
[2023-08-09] MEDS ORDERED: METOPROLOL TARTRATE 50 MG TABLET ONE (09:11)
[2023-08-09] MEDS ORDERED: HEPARIN SODIUM,PORCINE 5,000 UNITS/ML VIAL ONE (09:11)
[2023-08-09 09:17] LABS: THYROID STIMULATING HORMONE 0.077 mIU/mL (0.358-3.740)
[2023-08-09] MEDS: METOPROLOL TARTRATE 25 MG TABLET PO SCH ×2 (09:25→21:50)
[2023-08-09] MEDS: risperiDONE 0.5 MG TABLET PO SCH ×2 (09:27→19:00)
[2023-08-09] MEDS: HEPARIN SODIUM,PORCINE 5,000 UNITS/ML VIAL SQ SCH ×2 (09:27→21:50)
[2023-08-09] MEDS ORDERED: SEVE800T8 PO (11:25)
[2023-08-09] MEDS ORDERED: CINA60TA PO (11:28)
[2023-08-09] MEDS ORDERED: DOCU250C14 PO (12:02)
[2023-08-09] MEDS ORDERED: ASPI-495 PO (12:05)
[2023-08-09] MEDS ORDERED: SEVELAMER CARBONATE 800 MG TABLET PO ONE ×2 (13:31→18:14)
[2023-08-09] MEDS ORDERED: ASPIRIN 81 MG TAB.CHEW ONE (13:31)
[2023-08-09] MEDS: CINACALCET HCL 30 MG TABLET PO SCH (14:00)
[2023-08-09] MEDS: SEVELAMER CARBONATE 800 MG TABLET PO SCH (14:00)
[2023-08-09] MEDS: ASPIRIN 81 MG TAB.CHEW PO SCH (14:00)
[2023-08-09] MEDS: CALCIUM ACETATE 667 MG CAP/TAB PO SCH ×2 (14:00→18:00)
[2023-08-09] MEDS ORDERED: LORAZEPAM 1 MG TABLET ONE (17:25)
[2023-08-09] MEDS: LORAZEPAM 1 MG TABLET PO PRN (17:27)
[2023-08-10] MEDS ORDERED: METOPROLOL TARTRATE 50 MG TABLET ONE (01:35)
[2023-08-10] MEDS ORDERED: HEPARIN SODIUM,PORCINE 5,000 UNITS/ML VIAL ONE ×3 (01:35→21:23)
[2023-08-10] MEDS ORDERED: SEVELAMER CARBONATE 800 MG TABLET PO ONE ×4 (01:35→18:48)
[2023-08-10] MEDS: METOPROLOL TARTRATE 25 MG TABLET PO SCH ×2 (02:00→21:50)
[2023-08-10] MEDS: HEPARIN SODIUM,PORCINE 5,000 UNITS/ML VIAL SQ SCH ×2 (02:00→21:50)
[2023-08-10] MEDS: SEVELAMER CARBONATE 800 MG TABLET PO SCH ×3 (02:00→18:52)
[2023-08-10 06:30] LABS: BASOPHILS % (AUTO) 1.2 % (0.0-2.0); EOSINOPHILS # (AUTO) 0.1 K/uL (0.0-0.7); EOSINOPHILS % (AUTO) 2.4 % (0.0-7.0); HEMATOCRIT 42.8 % (31.2-41.9); HEMOGLOBIN 13.2 g/dL (10.9-14.3); LYMPHOCYTES # (AUTO) 0.6 K/uL (0.8-4.8); LYMPHOCYTES % (AUTO) 15.7 % (20.5-51.5); MEAN CORPUSCULAR HEMOGLOBIN 28.1 uug (24.7-32.8); MEAN CORPUSCULAR HGB CONC 31 g/dL (32.3-35.6); MEAN CORPUSCULAR VOLUME 91.4 fL (75.5-95.3); MONOCYTES # (AUTO) 0.4 K/uL (0.1-1.30); MONOCYTES % (AUTO) 11.2 % (0.0-11.0); NEUTROPHILS # (AUTO) 2.7 K/uL (1.8-8.9); NEUTROPHILS % (AUTO) 69.5 % (38.5-71.5); PLATELET COUNT (AUTO) 128 K/uL (179-408); RED BLOOD CELL COUNT(AUTO) 4.68 MIL/uL (3.63-4.92); WHITE BLOOD COUNT (AUTO) 3.8 K/uL (3.8-11.8)
[2023-08-10 06:45] LABS: CALCIUM 8.8 mg/dL (8.5-10.1); CREATININE 6.6 mg/dL (0.6-1.3); MAGNESIUM 2.5 mg/dL (1.8-2.4); PHOSPHOROUS 4.8 mg/dL (2.5-4.9); POTASSIUM 3.5 mmol/L (3.5-5.1)
[2023-08-10 06:47] LABS: DIFFERENTIAL COMMENT 1
[2023-08-10] MEDS ORDERED: PANTOPRAZOLE SODIUM 40 MG TABLET.DR PO ONE (07:27)
[2023-08-10] MEDS: PANTOPRAZOLE SODIUM 40 MG TABLET.DR PO SCH (07:32)
[2023-08-10] MEDS: BLOOD SUGAR DIAGNOSTIC 1 EACH STRIP VI SCH ×4 (07:33→22:00)
[2023-08-10] MEDS: CALCIUM ACETATE 667 MG CAP/TAB PO SCH ×3 (08:16→18:47)
[2023-08-10] MEDS ORDERED: ASPIRIN 81 MG TAB.CHEW ONE (08:18)
[2023-08-10] MEDS: ASPIRIN 81 MG TAB.CHEW PO SCH (08:32)
[2023-08-10] MEDS: risperiDONE 0.5 MG TABLET PO SCH ×2 (08:53→17:04)
[2023-08-10] MEDS: CINACALCET HCL 30 MG TABLET PO SCH (08:53)
[2023-08-11] MEDS ORDERED: QUETIAPINE FUMARATE 25 MG TABLET ONE (00:38)
[2023-08-11] MEDS ORDERED: TEMAZEPAM 7.5 MG CAPSULE ONE (00:39)
[2023-08-11] MEDS: QUETIAPINE FUMARATE 25 MG TABLET PO PRN (02:10)
[2023-08-11] MEDS: TEMAZEPAM 7.5 MG CAPSULE PO PRN (02:10)
[2023-08-11] MEDS ORDERED: PANTOPRAZOLE SODIUM 40 MG TABLET.DR PO ONE (07:34)
[2023-08-11] MEDS: PANTOPRAZOLE SODIUM 40 MG TABLET.DR PO SCH (07:34)
[2023-08-11] MEDS: BLOOD SUGAR DIAGNOSTIC 1 EACH STRIP VI SCH ×5 (07:40→20:32)
[2023-08-11] MEDS ORDERED: SEVELAMER CARBONATE 800 MG TABLET PO ONE ×2 (07:53→12:30)
[2023-08-11] MEDS: SEVELAMER CARBONATE 800 MG TABLET PO SCH ×3 (08:06→17:02)
[2023-08-11] MEDS: CALCIUM ACETATE 667 MG CAP/TAB PO SCH ×3 (08:06→17:02)
[2023-08-11 08:10] LABS: BASOPHILS % (AUTO) 0.6 % (0.0-2.0); EOSINOPHILS # (AUTO) 0.1 K/uL (0.0-0.7); EOSINOPHILS % (AUTO) 1.6 % (0.0-7.0); HEMATOCRIT 41.9 % (31.2-41.9); HEMOGLOBIN 12.8 g/dL (10.9-14.3); LYMPHOCYTES # (AUTO) 0.7 K/uL (0.8-4.8); LYMPHOCYTES % (AUTO) 19.2 % (20.5-51.5); MEAN CORPUSCULAR HEMOGLOBIN 27.9 uug (24.7-32.8); MEAN CORPUSCULAR HGB CONC 31 g/dL (32.3-35.6); MONOCYTES # (AUTO) 0.4 K/uL (0.1-1.30); MONOCYTES % (AUTO) 10.9 % (0.0-11.0); NEUTROPHILS # (AUTO) 2.6 K/uL (1.8-8.9); NEUTROPHILS % (AUTO) 67.7 % (38.5-71.5); PLATELET COUNT (AUTO) 139 K/uL (179-408); RED BLOOD CELL COUNT(AUTO) 4.61 MIL/uL (3.63-4.92); RED CELL DISTRIBUTION WIDTH 16.9 % (12.3-17.7); WHITE BLOOD COUNT (AUTO) 3.9 K/uL (3.8-11.8)
[2023-08-11 08:17] LABS: DIFFERENTIAL COMMENT 1
[2023-08-11 08:20] LABS: CALCIUM 8.9 mg/dL (8.5-10.1); POTASSIUM 3.9 mmol/L (3.5-5.1)
[2023-08-11 08:21] LABS: CREATININE 8.2 mg/dL (0.6-1.3)
[2023-08-11] MEDS: risperiDONE 0.5 MG TABLET PO SCH ×2 (09:00→16:48)
[2023-08-11] MEDS: CINACALCET HCL 30 MG TABLET PO SCH (09:00)
[2023-08-11] MEDS: METHIMAZOLE 5 MG TABLET PO SCH (09:00)
[2023-08-11] MEDS: HEPARIN SODIUM,PORCINE 5,000 UNITS/ML VIAL SQ SCH ×2 (09:00→20:22)
[2023-08-11] MEDS: ASPIRIN 81 MG TAB.CHEW PO SCH (09:00)
[2023-08-11] MEDS: METOPROLOL TARTRATE 25 MG TABLET PO SCH ×2 (10:27→20:19)
[2023-08-11] MEDS ORDERED: ASPIRIN 81 MG TAB.CHEW ONE (10:29)
[2023-08-11] MEDS ORDERED: HEPARIN SODIUM,PORCINE 5,000 UNITS/ML VIAL ONE (10:39)
[2023-08-11 14:30] VITALS: BP 139/77; TEMP 98.8; O2SAT 97
[2023-08-11 16:00] VITALS: BP 156/87; TEMP 98.4; O2SAT 94
[2023-08-11 20:00] VITALS: BP 139/58; TEMP 99.5; O2SAT 95
[2023-08-11 21:05] VITALS: O2SAT 94
[2023-08-11] MEDS: LORAZEPAM 1 MG TABLET PO PRN (21:32)
[2023-08-12] VITALS (69 sets, daily range): BP systolic 81–189; BP diastolic 42–86; TEMP 98.7–99.1; O2SAT 97–100
[2023-08-12] MEDS ORDERED: LORAZEPAM 2 MG/1 ML VIAL ONE (01:47)
[2023-08-12] MEDS ORDERED: LORAZEPAM 2 MG/1 ML VIAL IV ONE (03:15)
[2023-08-12] MEDS: IV D5/ 0.9% NACL 1,000 ML IV PRN (04:00)
[2023-08-12] MEDS ORDERED: NOREPINEPHRINE BITARTRATE 4 MG/4 ML VIAL IV ONE (05:47)
[2023-08-12] MEDS: NOREPINEPHRINE BITARTRATE 8 MG in IV NORMAL SALINE 242 ML IV PRN (06:17)
[2023-08-12] MEDS: PANTOPRAZOLE SODIUM 40 MG TABLET.DR PO SCH (06:52)
[2023-08-12] MEDS: CALCIUM ACETATE 667 MG CAP/TAB PO SCH ×3 (08:00→17:06)
[2023-08-12] MEDS: SEVELAMER CARBONATE 800 MG TABLET PO SCH ×3 (08:00→17:07)
[2023-08-12] MEDS: BLOOD SUGAR DIAGNOSTIC 1 EACH STRIP VI SCH ×4 (08:21→21:00)
[2023-08-12] MEDS: METOPROLOL TARTRATE 25 MG TABLET PO SCH ×2 (09:00→21:00)
[2023-08-12] MEDS: risperiDONE 0.5 MG TABLET PO SCH ×2 (09:00→16:42)
[2023-08-12] MEDS: METHIMAZOLE 5 MG TABLET PO SCH (09:00)
[2023-08-12] MEDS: CINACALCET HCL 30 MG TABLET PO SCH (09:00)
[2023-08-12] MEDS: ASPIRIN 81 MG TAB.CHEW PO SCH (09:00)
[2023-08-12 09:27] LABS: BASOPHILS # (AUTO) 0.1 K/UL (0.0-0.2); BASOPHILS % (AUTO) 1.8 % (0.0-2.0); EOSINOPHILS # (AUTO) 0.1 K/uL (0.0-0.7); EOSINOPHILS % (AUTO) 1.9 % (0.0-7.0); HEMATOCRIT 39.2 % (31.2-41.9); HEMOGLOBIN 11.9 g/dL (10.9-14.3); LYMPHOCYTES % (AUTO) 25.3 % (20.5-51.5); MEAN CORPUSCULAR HEMOGLOBIN 27.9 uug (24.7-32.8); MEAN CORPUSCULAR HGB CONC 30 g/dL (32.3-35.6); MEAN CORPUSCULAR VOLUME 92.4 fL (75.5-95.3); MONOCYTES # (AUTO) 0.6 K/uL (0.1-1.30); MONOCYTES % (AUTO) 14.1 % (0.0-11.0); NEUTROPHILS # (AUTO) 2.2 K/uL (1.8-8.9); NEUTROPHILS % (AUTO) 56.9 % (38.5-71.5); PLATELET COUNT (AUTO) 140 K/uL (179-408); RED BLOOD CELL COUNT(AUTO) 4.25 MIL/uL (3.63-4.92); RED CELL DISTRIBUTION WIDTH 16.9 % (12.3-17.7); WHITE BLOOD COUNT (AUTO) 3.9 K/uL (3.8-11.8)
[2023-08-12 09:36] LABS: CALCIUM 8.3 mg/dL (8.5-10.1); POTASSIUM 4.5 mmol/L (3.5-5.1)
[2023-08-12 09:38] LABS: CREATININE 9.7 mg/dL (0.6-1.3)
[2023-08-12 09:47] LABS: DIFFERENTIAL COMMENT 1
[2023-08-12] MEDS: HEPARIN SODIUM,PORCINE 5,000 UNITS/ML VIAL SQ SCH ×2 (12:16→21:00)
[2023-08-12] MEDS ORDERED: levETIRAcetam IV 500 MG in IV DEXTROSE 5% 100 ML IV PRN (13:15)
[2023-08-12] MEDS: levETIRAcetam IV 500 MG in IV DEXTROSE 5% 100 ML IV SCH (13:44)
[2023-08-12] MEDS: CEFEPIME HCL 1 G in IV DEXTROSE 5% 50 ML IV SCH (13:50)
[2023-08-12] MEDS ORDERED: CEFEPIME HCL 1 G in IV DEXTROSE 5% 50 ML IV SCH (14:00)
[2023-08-12] MEDS: INSULIN REGULAR, HUMAN 300 UNIT/3 ML VIAL SQ PRN (16:40)
[2023-08-12] MEDS ORDERED: levETIRAcetam IV 500 MG in IV DEXTROSE 5% 100 ML IV SCH (21:00)
[2023-08-12] MEDS: LORAZEPAM 1 MG TABLET PO PRN (21:21)
[2023-08-13] VITALS (43 sets, daily range): BP systolic 86–185; BP diastolic 51–95; TEMP 97.5–99.3; O2SAT 95–100
[2023-08-13] MEDS: IV D5/ 0.9% NACL 1,000 ML IV PRN (02:28)
[2023-08-13 05:14] LABS: BASOPHILS % (AUTO) 0.9 % (0.0-2.0); EOSINOPHILS # (AUTO) 0.1 K/uL (0.0-0.7); EOSINOPHILS % (AUTO) 2.2 % (0.0-7.0); HEMATOCRIT 38.3 % (31.2-41.9); HEMOGLOBIN 11.8 g/dL (10.9-14.3); LYMPHOCYTES # (AUTO) 0.9 K/uL (0.8-4.8); LYMPHOCYTES % (AUTO) 23.4 % (20.5-51.5); MEAN CORPUSCULAR HEMOGLOBIN 28.1 uug (24.7-32.8); MEAN CORPUSCULAR HGB CONC 31 g/dL (32.3-35.6); MEAN CORPUSCULAR VOLUME 91.6 fL (75.5-95.3); MONOCYTES # (AUTO) 0.4 K/uL (0.1-1.30); MONOCYTES % (AUTO) 11.5 % (0.0-11.0); NEUTROPHILS # (AUTO) 2.3 K/uL (1.8-8.9); PLATELET COUNT (AUTO) 104 K/uL (179-408); RED BLOOD CELL COUNT(AUTO) 4.19 MIL/uL (3.63-4.92); RED CELL DISTRIBUTION WIDTH 16.8 % (12.3-17.7); WHITE BLOOD COUNT (AUTO) 3.8 K/uL (3.8-11.8)
[2023-08-13 05:54] LABS: DIFFERENTIAL COMMENT 1
[2023-08-13 05:58] LABS: CALCIUM 8.2 mg/dL (8.5-10.1); POTASSIUM 3.2 mmol/L (3.5-5.1)
[2023-08-13] MEDS: PANTOPRAZOLE SODIUM 40 MG TABLET.DR PO SCH (06:23)
[2023-08-13] MEDS: BLOOD SUGAR DIAGNOSTIC 1 EACH STRIP VI SCH ×4 (06:39→20:52)
[2023-08-13] MEDS: LORAZEPAM 1 MG TABLET PO PRN (07:16)
[2023-08-13] MEDS: METHIMAZOLE 5 MG TABLET PO SCH (08:26)
[2023-08-13] MEDS: CALCIUM ACETATE 667 MG CAP/TAB PO SCH ×3 (08:26→17:06)
[2023-08-13] MEDS: ASPIRIN 81 MG TAB.CHEW PO SCH (08:26)
[2023-08-13] MEDS: METOPROLOL TARTRATE 25 MG TABLET PO SCH ×2 (08:26→20:45)
[2023-08-13] MEDS: levETIRAcetam IV 500 MG in IV DEXTROSE 5% 100 ML IV SCH (08:27)
[2023-08-13] MEDS: HEPARIN SODIUM,PORCINE 5,000 UNITS/ML VIAL SQ SCH ×2 (08:28→20:51)
[2023-08-13] MEDS: SEVELAMER CARBONATE 800 MG TABLET PO SCH ×3 (08:30→17:03)
[2023-08-13] MEDS: CINACALCET HCL 30 MG TABLET PO SCH (08:31)
[2023-08-13] MEDS: risperiDONE 0.25 MG TABLET PO SCH ×2 (09:12→17:04)
[2023-08-13] MEDS: POTASSIUM CHLORIDE 50 ML IV SCH ×4 (11:46→15:58)
[2023-08-13] MEDS: INSULIN REGULAR, HUMAN 300 UNIT/3 ML VIAL SQ PRN (12:09)
[2023-08-13] MEDS: CEFEPIME HCL 1 G in IV DEXTROSE 5% 50 ML IV SCH (13:46)
[2023-08-13] MEDS: NOREPINEPHRINE BITARTRATE 8 MG in IV NORMAL SALINE 242 ML IV PRN (15:58)
[2023-08-13] MEDS: TEMAZEPAM 7.5 MG CAPSULE PO PRN (22:39)
[2023-08-14] VITALS (61 sets, daily range): BP systolic 89–171; BP diastolic 37–83; TEMP 97.8–98.6; O2SAT 95–100
[2023-08-14] MEDS: IV D5/ 0.9% NACL 1,000 ML IV PRN (03:37)
[2023-08-14] MEDS: ACETAMINOPHEN 325 MG TABLET PO PRN ×2 (04:41→11:56)
[2023-08-14 06:03] LABS: BASOPHILS % (AUTO) 0.9 % (0.0-2.0); EOSINOPHILS # (AUTO) 0.1 K/uL (0.0-0.7); EOSINOPHILS % (AUTO) 2.5 % (0.0-7.0); HEMATOCRIT 37.6 % (31.2-41.9); HEMOGLOBIN 11.5 g/dL (10.9-14.3); LYMPHOCYTES # (AUTO) 0.8 K/uL (0.8-4.8); LYMPHOCYTES % (AUTO) 29.7 % (20.5-51.5); MEAN CORPUSCULAR HEMOGLOBIN 28.1 uug (24.7-32.8); MEAN CORPUSCULAR HGB CONC 31 g/dL (32.3-35.6); MEAN CORPUSCULAR VOLUME 91.9 fL (75.5-95.3); MONOCYTES # (AUTO) 0.5 K/uL (0.1-1.30); MONOCYTES % (AUTO) 17.1 % (0.0-11.0); NEUTROPHILS # (AUTO) 1.4 K/uL (1.8-8.9); NEUTROPHILS % (AUTO) 49.8 % (38.5-71.5); PLATELET COUNT (AUTO) 78 K/uL (179-408); RED BLOOD CELL COUNT(AUTO) 4.09 MIL/uL (3.63-4.92); RED CELL DISTRIBUTION WIDTH 16.5 % (12.3-17.7); WHITE BLOOD COUNT (AUTO) 2.8 K/uL (3.8-11.8)
[2023-08-14 06:12] LABS: DIFFERENTIAL COMMENT 1
[2023-08-14 06:36] LABS: CALCIUM 7.8 mg/dL (8.5-10.1); CREATININE 7.3 mg/dL (0.6-1.3); POTASSIUM 4.3 mmol/L (3.5-5.1)
[2023-08-14] MEDS: PANTOPRAZOLE SODIUM 40 MG TABLET.DR PO SCH (07:47)
[2023-08-14] MEDS: BLOOD SUGAR DIAGNOSTIC 1 EACH STRIP VI SCH ×4 (07:53→21:30)
[2023-08-14] MEDS: SEVELAMER CARBONATE 800 MG TABLET PO SCH ×3 (07:58→17:29)
[2023-08-14] MEDS: CALCIUM ACETATE 667 MG CAP/TAB PO SCH ×3 (07:58→17:29)
[2023-08-14] MEDS: METOPROLOL TARTRATE 25 MG TABLET PO SCH ×2 (09:00→21:00)
[2023-08-14] MEDS: risperiDONE 0.25 MG TABLET PO SCH ×2 (10:39→16:15)
[2023-08-14] MEDS: ASPIRIN 81 MG TAB.CHEW PO SCH (10:39)
[2023-08-14] MEDS: CINACALCET HCL 30 MG TABLET PO SCH (10:40)
[2023-08-14] MEDS: METHIMAZOLE 5 MG TABLET PO SCH (10:41)
[2023-08-14] MEDS: HEPARIN SODIUM,PORCINE 5,000 UNITS/ML VIAL SQ SCH ×2 (10:43→20:52)
[2023-08-14] MEDS: INSULIN REGULAR, HUMAN 300 UNIT/3 ML VIAL SQ PRN ×2 (11:19→22:55)
[2023-08-14] MEDS: levETIRAcetam IV 500 MG in IV DEXTROSE 5% 100 ML IV SCH (12:54)
[2023-08-14] MEDS: CEFEPIME HCL 1 G in IV DEXTROSE 5% 50 ML IV SCH (14:00)
[2023-08-14] MEDS: HYDROCODONE/APAP 10-325 MG TABLET PO PRN ×2 (14:22→21:08)
[2023-08-14 15:00] LABS: MONOCYTES % (MANUAL) 15 % (2-10); NEUTROPHILS % (MANUAL) 53 % (42-75)
[2023-08-14 15:01] LABS: EOSINOPHILS % (MANUAL) 2 % (0-8); LYMPHOCYTES % (MANUAL) 30 % (20-40)
[2023-08-14] MEDS: LORAZEPAM 1 MG TABLET PO PRN (18:38)
[2023-08-14] MEDS: HYDROCORTISONE SOD SUCCINATE 100 MG/2 ML VIAL IV SCH (20:53)
[2023-08-14] MEDS ORDERED: levETIRAcetam 500 MG/5 ML LIQUID UDC ONE (22:43)
[2023-08-14] MEDS: levETIRAcetam 500 MG/5 ML LIQUID UDC NG SCH (22:46)
[2023-08-14] MEDS: MIDODRINE HCL 2.5 MG TABLET PO SCH (22:48)
[2023-08-15] VITALS (19 sets, daily range): BP systolic 89–160; BP diastolic 37–92; TEMP 97.5–99.5; O2SAT 97–100
[2023-08-15] MEDS: TEMAZEPAM 7.5 MG CAPSULE PO PRN (01:48)
[2023-08-15 05:50] LABS: CALCIUM 8.3 mg/dL (8.5-10.1); CREATININE 5.4 mg/dL (0.6-1.3); POTASSIUM 4.8 mmol/L (3.5-5.1)
[2023-08-15 05:52] LABS: BASOPHILS % (AUTO) 0.8 % (0.0-2.0); DIFFERENTIAL COMMENT 0; EOSINOPHILS % (AUTO) 0.2 % (0.0-7.0); HEMATOCRIT 40.5 % (31.2-41.9); HEMOGLOBIN 12.6 g/dL (10.9-14.3); LYMPHOCYTES # (AUTO) 0.4 K/uL (0.8-4.8); LYMPHOCYTES % (AUTO) 16.1 % (20.5-51.5); MEAN CORPUSCULAR HEMOGLOBIN 28.5 uug (24.7-32.8); MEAN CORPUSCULAR HGB CONC 31 g/dL (32.3-35.6); MEAN CORPUSCULAR VOLUME 91.3 fL (75.5-95.3); MONOCYTES # (AUTO) 0.1 K/uL (0.1-1.30); NEUTROPHILS # (AUTO) 1.7 K/uL (1.8-8.9); NEUTROPHILS % (AUTO) 78.9 % (38.5-71.5); PLATELET COUNT (AUTO) 91 K/uL (179-408); RED BLOOD CELL COUNT(AUTO) 4.44 MIL/uL (3.63-4.92); RED CELL DISTRIBUTION WIDTH 16.3 % (12.3-17.7); WHITE BLOOD COUNT (AUTO) 2.2 K/uL (3.8-11.8)
[2023-08-15] MEDS: MIDODRINE HCL 2.5 MG TABLET PO SCH ×2 (06:00→14:37)
[2023-08-15] MEDS: PANTOPRAZOLE SODIUM 40 MG TABLET.DR PO SCH (06:42)
[2023-08-15] MEDS: BLOOD SUGAR DIAGNOSTIC 1 EACH STRIP VI SCH ×3 (07:29→17:19)
[2023-08-15] MEDS: INSULIN REGULAR, HUMAN 300 UNIT/3 ML VIAL SQ PRN ×3 (07:46→17:36)
[2023-08-15] MEDS: HYDROCODONE/APAP 10-325 MG TABLET PO PRN ×2 (07:48→17:22)
[2023-08-15] MEDS: CALCIUM ACETATE 667 MG CAP/TAB PO SCH ×3 (08:00→17:33)
[2023-08-15] MEDS: SEVELAMER CARBONATE 800 MG TABLET PO SCH ×3 (08:00→17:33)
[2023-08-15] MEDS: HYDROCORTISONE SOD SUCCINATE 100 MG/2 ML VIAL IV SCH (08:59)
[2023-08-15] MEDS: risperiDONE 0.25 MG TABLET PO SCH ×2 (08:59→17:20)
[2023-08-15] MEDS: ASPIRIN 81 MG TAB.CHEW PO SCH (08:59)
[2023-08-15] MEDS: METHIMAZOLE 5 MG TABLET PO SCH (09:00)
[2023-08-15] MEDS: METOPROLOL TARTRATE 25 MG TABLET PO SCH (09:00)
[2023-08-15] MEDS: CINACALCET HCL 30 MG TABLET PO SCH (09:01)
[2023-08-15] MEDS: levETIRAcetam 500 MG/5 ML LIQUID UDC NG SCH (09:07)
[2023-08-15] MEDS: HEPARIN SODIUM,PORCINE 5,000 UNITS/ML VIAL SQ SCH (09:50)
[2023-08-15] MEDS ORDERED: FLUD0.1T PO (12:37)
[2023-08-15] MEDS ORDERED: MIDO2.5T2 PO (12:37)
[2023-08-15] MEDS ORDERED: CINA30TA2 PO (12:37)
[2023-08-15] MEDS ORDERED: LEVE100S NG (12:37)
[2023-08-15] MEDS ORDERED: CALC667C6 PO (12:37)
[2023-08-15] MEDS ORDERED: RISP0.2515 PO (12:37)
[2023-08-15] MEDS ORDERED: METH5TAB34 PO (12:37)
[2023-08-15] MEDS ORDERED: DOXY100C5 PO (12:37)
[2023-08-15] MEDS: CEFEPIME HCL 1 G in IV DEXTROSE 5% 50 ML IV SCH (17:14)
[2023-08-15] MEDS ORDERED: levETIRAcetam 500 MG TABLET PO SCH (21:00)
[2023-08-17] MEDS ORDERED: DOXY100T2 PO (12:43)
[2023-08-17] MEDS ORDERED: LEVE500T9 PO (12:43)
[2023-08-17] MEDS ORDERED: MIDO10TA PO (12:43)
[2023-08-17] MEDS ORDERED: METH5TAB70 PO (12:44)
[2023-08-18 05:10] LABS: HEPATITIS B SURFACE AB, QUAL Reactive (.); HEPATITIS B SURFACE AG Negative (Negative)
== END 2023-08-15 18:25 | disposition home health service (06) | DRG 871 ==
LOC: ER 14:38 → TRANSITION 17:04 → MED 08-11 14:07 → TELE-TD3 08-12 02:36 → CCU 08-12 05:54
PROVIDERS: ADMIT Nurse Practitioner Family; ATTEND Nurse Practitioner Family
PROC: 5A1D70Z Performance of Urinary Filtration, Intermittent, Less than 6 Hours Per Day (ICD-10-PCS; principal; 2023-08-09)
DX: A41.9 Sepsis, unspecified organism (principal); G93.41 Metabolic encephalopathy; J69.0 Pneumonitis due to inhalation of food and vomit; J96.01 Acute respiratory failure with hypoxia; N18.6 End stage renal disease; R65.21 Severe sepsis with septic shock; R57.9 Shock, unspecified; I13.11 Hypertensive heart and chronic kidney disease without heart failure, with stage 5 chronic kidney disease, or end stage renal disease; E87.70 Fluid overload, unspecified; R41.0 Disorientation, unspecified; E11.22 Type 2 diabetes mellitus with diabetic chronic kidney disease; Z99.2 Dependence on renal dialysis; D69.6 Thrombocytopenia, unspecified; G89.29 Other chronic pain; F39 Unspecified mood [affective] disorder; Z89.512 Acquired absence of left leg below knee; R56.9 Unspecified convulsions; Z79.4 Long term (current) use of insulin; M54.9 Dorsalgia, unspecified; F29 Unspecified psychosis not due to a substance or known physiological condition; E87.6 Hypokalemia; E83.51 Hypocalcemia; E05.90 Thyrotoxicosis, unspecified without thyrotoxic crisis or storm; H54.61 Unqualified visual loss, right eye, normal vision left eye; Z86.16 Personal history of COVID-19; Z87.01 Personal history of pneumonia (recurrent); Z79.899 Other long term (current) drug therapy
CPT/HCPCS: 36415; 70030-TC; 70450; 71045; 83605; 83735; 84100; 84443; 84481; 84484; 85025; 85730; 86706; 87040; 87340; 90937; 93005; 95819; A4606; A4663; G0378; G0480; J0360; J0692; J0713; J1644; J1720; J1815; J1953; J2060; J3480; J3490; J7040; J7042

== ENCOUNTER 2025-01-02 13:46 | Emergency (ER) | payer MEDICARE, OTHER ==
[~2025-01-02] VITALS: Ht 165.1 cm; Wt 77.1 kg
[~2025-01-02 13:46] MED LIST changes: -ALPR2TAB2 PO; +ASPI-495 PO; -CALC667C6 PO; -DEXA4TAB PO; +DOCU-141 PO; +DULO20CA19 PO; -GABA300C PO; +HYDR-3980 PO; -INSU100V10 SQ; -LEVO500T90 PO; +MIDO5TAB5 PO; +ONDA4TAB5 PO; -OXYC-133 PO; -SEVE800T7 PO; +SEVE800T8 PO; +SODI5POW2 PO
[2025-01-02] MEDS ORDERED: HYDROMORPHONE 1 MG/1 ML DISP.SYRIN IV ONE (14:30)
[2025-01-02] MEDS ORDERED: diphenhydrAMINE 50 MG/1 ML VIAL ONE ×2 (14:34→16:34)
[2025-01-02] MEDS ORDERED: MORPHINE SULFATE 4 MG/1 ML DISP.SYRIN ONE ×2 (14:35→16:27)
[2025-01-02] MEDS ORDERED: MORPHINE SULFATE 2 MG/1 ML DISP.SYRIN ONE (14:35)
[2025-01-02] MEDS ORDERED: IOHEXOL 300MG/ML 100 ML INFUS..BTL ONE (14:46)
[2025-01-02] MEDS ORDERED: IV NORMAL SALINE 250 ML IV ONE (14:46)
[2025-01-02] MEDS ORDERED: SWABABLE VALVE TRANSFER SET EA MC ONE (14:46)
[2025-01-02] MEDS: MORPHINE SULFATE 4 MG/1 ML DISP.SYRIN IV ONE ×2 (14:47→16:27)
[2025-01-02] MEDS: diphenhydrAMINE 50 MG/1 ML VIAL IV ONE ×2 (14:47→16:40)
[2025-01-02] MEDS ORDERED: ONDANSETRON 4 MG/2 ML VIAL ONE (14:48)
[2025-01-02 14:50] LABS: BASOPHILS % (AUTO) 0.9 % (0.0-2.0); EOSINOPHILS # (AUTO) 0.1 K/uL (0.0-0.7); EOSINOPHILS % (AUTO) 2.9 % (0.0-7.0); HEMATOCRIT 35.1 % (31.2-41.9); HEMOGLOBIN 10.9 g/dL (10.9-14.3); LYMPHOCYTES # (AUTO) 0.9 K/uL (0.8-4.8); LYMPHOCYTES % (AUTO) 18.9 % (20.5-51.5); MEAN CORPUSCULAR HEMOGLOBIN 28.3 uug (24.7-32.8); MEAN CORPUSCULAR HGB CONC 31 g/dL (32.3-35.6); MONOCYTES # (AUTO) 0.6 K/uL (0.1-1.30); MONOCYTES % (AUTO) 11.6 % (0.0-11.0); NEUTROPHILS # (AUTO) 3.1 K/uL (1.8-8.9); NEUTROPHILS % (AUTO) 65.7 % (38.5-71.5); PLATELET COUNT (AUTO) 143 K/uL (179-408); RED BLOOD CELL COUNT(AUTO) 3.86 MIL/uL (3.63-4.92); RED CELL DISTRIBUTION WIDTH 18.4 % (12.3-17.7); WHITE BLOOD COUNT (AUTO) 4.8 K/uL (3.8-11.8)
[2025-01-02 14:54] LABS: DIFFERENTIAL COMMENT 1
[2025-01-02] MEDS: ONDANSETRON 4 MG/2 ML VIAL IV ONE (14:57)
[2025-01-02 15:24] LABS: CALCIUM 9.7 mg/dL (8.5-10.1); CARBON DIOXIDE 28 mmol/L (21-32); CHLORIDE 105 mmol/L (98-107); CREATININE 5.1 mg/dL (0.6-1.3); GLUCOSE 136 mg/dL (74-106); SODIUM SERUM 139 mmol/L (136-145); UREA NITROGEN, BLOOD 44 mg/dL (7-18)
[2025-01-02 15:27] LABS: POTASSIUM 5.6 mmol/L (3.5-5.1)
[2025-01-02 15:30] LABS: ALANINE AMINOTRANSFERASE 35 U/L (14-59); ALBUMIN 2.8 g/dL (3.4-5.0); ALKALINE PHOSPHATASE 146 U/L (50-136); ASPARTATE AMINOTRANSFERASE 26 U/L (15-37); BILIRUBIN,DIRECT 0.2 mg/dL (0.0-0.2); BILIRUBIN,TOTAL 0.6 mg/dL (0.2-1.0); LIPASE 31 U/L (16-77); TOTAL PROTEIN, SERUM 6.6 g/dL (6.4-8.2)
[2025-01-02] MEDS ORDERED: HYDR-3980 PO (16:16)
[2025-01-02] MEDS ORDERED: SODIUM POLYSTYRENE SULFONATE 15 G/60 ML LIQUID UDC ONE (16:27)
[2025-01-02] MEDS: SODIUM POLYSTYRENE SULFONATE 15 G/60 ML LIQUID UDC PO ONE (16:27)
[2025-01-02 18:15] VITALS: BP 170/73; O2SAT 98
== END 2025-01-02 18:17 | disposition home or self-care (01) ==
LOC: ER 13:46
DX: R10.84 Generalized abdominal pain (principal); E11.22 Type 2 diabetes mellitus with diabetic chronic kidney disease; N18.6 End stage renal disease; E87.5 Hyperkalemia; Z79.82 Long term (current) use of aspirin; Z86.16 Personal history of COVID-19; Z88.5 Allergy status to narcotic agent; Z88.8 Allergy status to other drugs, medicaments and biological substances; Z89.512 Acquired absence of left leg below knee; Z99.2 Dependence on renal dialysis; Z86.79 Personal history of other diseases of the circulatory system; Z87.42 Personal history of other diseases of the female genital tract; Z86.59 Personal history of other mental and behavioral disorders; Z60.2 Problems related to living alone
CPT/HCPCS: 99285; 74177; 96374; 96375; 80076; 80048; 83690; 85025; 84484; 36415; 93005; 96376; J1200 ×2; J2405; Q9967; J2270 ×3; A4606; A4663

== ENCOUNTER 2025-04-07 18:25 | Inpatient (IN) | payer MEDICARE, OTHER ==
[~2025-04-07] VITALS: Ht 157.5 cm; Wt 77.6 kg
[2025-04-07] MEDS: ALBUTEROL SULFATE 2.5 MG/3 ML NEBU NEB ONE (18:30)
[2025-04-07 18:59] LABS: PLATELET COUNT (AUTO) 189 K/uL (179-408); RED BLOOD CELL COUNT(AUTO) 4.45 MIL/uL (3.63-4.92); RED CELL DISTRIBUTION WIDTH 17.2 % (12.3-17.7); WHITE BLOOD COUNT (AUTO) 5.1 K/uL (3.8-11.8)
[2025-04-07] MEDS ORDERED: ALBUTEROL SULFATE 2.5 MG/3 ML NEBU ONE (19:12)
[2025-04-07 19:14] LABS: ASPARTATE AMINOTRANSFERASE 16 U/L (15-37); CREATININE 4.4 mg/dL (0.6-1.3); SODIUM SERUM 135 mmol/L (136-145); TOTAL PROTEIN, SERUM 8.4 g/dL (6.4-8.2); UREA NITROGEN, BLOOD 39 mg/dL (7-18)
[2025-04-07 19:33] LABS: ABG BASE EXCESS 10.3 mmol/L (-2.0-3.0); ABG HCO3 33.0 mmol/L (21.0-28.0); ABG PCO2 37.5 mmHg (32.0-45.0); ABG PH 7.563 (7.350-7.450); ABG PO2 335.4 mmHg (83.0-108.0); ABG SITE LEFT RADIAL; ABG TOTAL HEMOGLOBIN 12.8 G/dL (12.0-16.0); AaDO2 99.8 mmHg; FIO2 100.0 %; PEEP,BG 5.0 cmH20; SET RATE, BG 20.0; VT, ABG 400 mL
[2025-04-07] MEDS ORDERED: GLUC1KIT IM (19:37)
[2025-04-07] MEDS ORDERED: AMIN30LI27 GT (19:37)
[2025-04-07] MEDS ORDERED: DOCU-286 GT (19:37)
[2025-04-07] MEDS ORDERED: BISA10SU61 RC (19:37)
[2025-04-07] MEDS ORDERED: APIX5TAB GT (19:37)
[2025-04-07] MEDS ORDERED: IPRA3AMP22 IH (19:37)
[2025-04-07] MEDS ORDERED: INSU100C4 (19:37)
[2025-04-07] MEDS ORDERED: ZINC220T4 GT (19:37)
[2025-04-07] MEDS ORDERED: MIDO5TAB5 GT (19:37)
[2025-04-07] MEDS ORDERED: ESOM40CA GT (19:37)
[2025-04-07] MEDS ORDERED: AMLO10TA4 GT (19:37)
[2025-04-07] MEDS ORDERED: INSU100V7 SQ (19:37)
[2025-04-07] MEDS ORDERED: ACET-3117 GT (19:37)
[2025-04-07] MEDS ORDERED: B COMPLEX WITH FOLIC GT (19:37)
[2025-04-07 20:35] LABS: ABG BASE EXCESS 12.8 mmol/L (-2.0-3.0); ABG HCO3 37.2 mmol/L (21.0-28.0); ABG PCO2 46.3 mmHg (32.0-45.0); ABG PH 7.523 (7.350-7.450); ABG PO2 125.3 mmHg (83.0-108.0); ABG SITE LEFT RADIAL; ABG TOTAL HEMOGLOBIN 12.6 G/dL (12.0-16.0); AaDO2 98.8 mmHg; FIO2 50.0 %; PEEP,BG 5.0 cmH20; SET RATE, BG 14.0; VT, ABG 400 mL
[2025-04-07] MEDS: VANCOMYCIN 1G/D5W 200 ML PIGGYBACK IV ONE (20:44)
[2025-04-07] MEDS ORDERED: VANCOMYCIN IV 200 ML ONE (20:44)
[2025-04-07] MEDS ORDERED: BISACODYL 10 MG SUPP.RECT RC PRN (20:45)
[2025-04-07] MEDS ORDERED: MAGNESIUM HYDROXIDE 30 ML LIQUID UDC PO PRN (20:45)
[2025-04-07] MEDS ORDERED: ONDANSETRON 4 MG/2 ML VIAL IV PRN (20:45)
[2025-04-07] MEDS ORDERED: DEXTROSE 50% 50 ML DISP.SYRIN IV PRN (21:15)
[2025-04-07] MEDS: MIDODRINE HCL 5 MG TABLET GT SCH (22:26)
[2025-04-07] MEDS: BLOOD SUGAR DIAGNOSTIC 1 EACH STRIP VI SCH (23:49)
[2025-04-08] VITALS (40 sets, daily range): BP systolic 94–151; BP diastolic 29–88; TEMP 98–99.1; O2SAT 90–100
[2025-04-08 05:20] LABS: PLATELET COUNT (AUTO) 193 K/uL (179-408); RED BLOOD CELL COUNT(AUTO) 4.32 MIL/uL (3.63-4.92); RED CELL DISTRIBUTION WIDTH 16.8 % (12.3-17.7); WHITE BLOOD COUNT (AUTO) 4.9 K/uL (3.8-11.8)
[2025-04-08 05:30] LABS: CREATININE 5.0 mg/dL (0.6-1.3); SODIUM SERUM 139.0 mmol/L (136-145); UREA NITROGEN, BLOOD 41.0 mg/dL (7-18)
[2025-04-08 07:20] LABS: ABG BASE EXCESS 10.4 mmol/L (-2.0-3.0); ABG HCO3 34.6 mmol/L (21.0-28.0); ABG PCO2 44.7 mmHg (32.0-45.0); ABG PH 7.507 (7.350-7.450); ABG PO2 94.3 mmHg (83.0-108.0); ABG SITE LEFT RADIAL; ABG TOTAL HEMOGLOBIN 12.6 G/dL (12.0-16.0); AaDO2 97.7 mmHg; FIO2 40.0 %; PEEP,BG 5.0 cmH20; SET RATE, BG 14.0; VT, ABG 400 mL
[2025-04-08] MEDS: DOCUSATE SODIUM 100 MG CAPSULE PO SCH (10:48)
[2025-04-08] MEDS: APIXABAN 5 MG TABLET GT SCH (10:49)
[2025-04-08] MEDS: AMLODIPINE 10 MG TABLET GT SCH (10:50)
[2025-04-08] MEDS ORDERED: NEPRO 1000 ML GT SCH (16:30)
[2025-04-08] MEDS: POTASSIUM CHLORIDE 20 MEQ TAB.PRT.SR PO ONE (17:27)
[2025-04-08] MEDS ORDERED: NOREPINEPHRINE 8MG/NS 250ML 250 ML IV PRN (17:45)
[2025-04-08] MEDS: NOREPINEPHRINE 8MG/NS 250ML 250 ML IV PRN (17:49)
[2025-04-08] MEDS: NEPRO 1000 ML GT PRN (18:33)
[2025-04-08] MEDS: VANCOMYCIN IV 500 MG in IV DEXTROSE 5% 100 ML IV ONE (22:08)
[2025-04-09] VITALS (91 sets, daily range): BP systolic 68–161; BP diastolic 0–83; TEMP 98.7–100.5; O2SAT 97–100
[2025-04-09] MEDS: INSULIN REGULAR, HUMAN 1000 UNIT/10 ML VIAL SQ PRN (00:43)
[2025-04-09] MEDS: ACETAMINOPHEN 325 MG TABLET PO PRN (02:03)
[2025-04-09 05:00] LABS: PLATELET COUNT (AUTO) 246 K/uL (179-408); RED BLOOD CELL COUNT(AUTO) 4.98 MIL/uL (3.63-4.92); RED CELL DISTRIBUTION WIDTH 16.9 % (12.3-17.7); WHITE BLOOD COUNT (AUTO) 7.3 K/uL (3.8-11.8)
[2025-04-09 05:12] LABS: CREATININE 6.4 mg/dL (0.6-1.3); SODIUM SERUM 136.0 mmol/L (136-145); UREA NITROGEN, BLOOD 55.0 mg/dL (7-18)
[2025-04-09] MEDS ORDERED: VANCOMYCIN IV 500 MG in IV DEXTROSE 5% 100 ML IV PRN (06:45)
[2025-04-09] MEDS ORDERED: DOCUSATE SODIUM 100 MG/10 ML LIQUID UDC ONE (09:27)
[2025-04-09] MEDS: DOCUSATE SODIUM 100 MG/10 ML LIQUID UDC GT SCH (09:51)
[2025-04-09] MEDS ORDERED: MIDODRINE HCL 5 MG TABLET ONE (13:24)
[2025-04-09] MEDS: CEFEPIME (MAXEPIME) 1 G in IV DEXTROSE 5% 50 ML IV SCH (21:16)
[2025-04-09] MEDS: VANCOMYCIN IV 500 MG in IV DEXTROSE 5% 100 ML IV ONE (23:00)
[2025-04-10] VITALS (97 sets, daily range): BP systolic 55–162; BP diastolic 14–128; TEMP 98.4–98.9; O2SAT 97–100
[2025-04-10 05:14] LABS: PLATELET COUNT (AUTO) 218 K/uL (179-408); RED BLOOD CELL COUNT(AUTO) 4.67 MIL/uL (3.63-4.92); RED CELL DISTRIBUTION WIDTH 17.5 % (12.3-17.7); WHITE BLOOD COUNT (AUTO) 6.0 K/uL (3.8-11.8)
[2025-04-10 05:25] LABS: SODIUM SERUM 140.0 mmol/L (136-145); UREA NITROGEN, BLOOD 66.0 mg/dL (7-18)
[2025-04-10 05:28] LABS: CREATININE 7.6 mg/dL (0.6-1.3)
[2025-04-10 07:57] LABS: ABG BASE EXCESS 6.6 mmol/L (-2.0-3.0); ABG HCO3 31.8 mmol/L (21.0-28.0); ABG PCO2 47.9 mmHg (32.0-45.0); ABG PH 7.440 (7.350-7.450); ABG PO2 95.5 mmHg (83.0-108.0); ABG SITE RIGHT RADIAL; ABG TOTAL HEMOGLOBIN 12.7 G/dL (12.0-16.0); AaDO2 97.4 mmHg; FIO2 30.0 %; PEEP,BG 5.0 cmH20; SET RATE, BG 12.0; VT, ABG 300 mL
[2025-04-10] MEDS: MUPIROCIN 2% OINT 22 GM TUBE NS SCH (09:14)
[2025-04-10] MEDS: METHIMAZOLE 5 MG TABLET PO SCH (09:17)
[2025-04-10] MEDS: VANCOMYCIN HCL 750 MG in IV DEXTROSE 5% 250 ML IV ONE (15:29)
[2025-04-11] VITALS (115 sets, daily range): BP systolic 59–173; BP diastolic 23–117; TEMP 98.1–99.7; O2SAT 91–100
[2025-04-11 05:04] LABS: PLATELET COUNT (AUTO) 206 K/uL (179-408); RED BLOOD CELL COUNT(AUTO) 5.04 MIL/uL (3.63-4.92); RED CELL DISTRIBUTION WIDTH 17.3 % (12.3-17.7); WHITE BLOOD COUNT (AUTO) 5.0 K/uL (3.8-11.8)
[2025-04-11 05:19] LABS: CREATININE 5.4 mg/dL (0.6-1.3); SODIUM SERUM 140.0 mmol/L (136-145); UREA NITROGEN, BLOOD 37.0 mg/dL (7-18)
[2025-04-11] MEDS: MIDODRINE HCL 5 MG TABLET GT SCH (12:46)
[2025-04-11] MEDS: HYDROCORTISONE SOD SUCCINATE 100 MG/2 ML VIAL IV SCH (21:05)
[2025-04-11 22:07] LABS: HEPATITIS B SURFACE AB, QUAL Reactive (.); HEPATITIS B SURFACE AG Negative (Negative)
[2025-04-12] VITALS (112 sets, daily range): BP systolic 68–172; BP diastolic 23–154; TEMP 97.6–98.9; O2SAT 97–100
[2025-04-12 05:45] LABS: PLATELET COUNT (AUTO) 219 K/uL (179-408); RED BLOOD CELL COUNT(AUTO) 4.76 MIL/uL (3.63-4.92); RED CELL DISTRIBUTION WIDTH 17.4 % (12.3-17.7); WHITE BLOOD COUNT (AUTO) 4.2 K/uL (3.8-11.8)
[2025-04-12 05:54] LABS: ASPARTATE AMINOTRANSFERASE 15.0 U/L (15-37); CREATININE 7.0 mg/dL (0.6-1.3); SODIUM SERUM 142.0 mmol/L (136-145); TOTAL PROTEIN, SERUM 9.1 g/dL (6.4-8.2); UREA NITROGEN, BLOOD 52.0 mg/dL (7-18)
[2025-04-12] MEDS: ARGININE/GLUTAMINE/CALCIUM BMB 1 EACH POWD.PACK GT SCH (08:51)
[2025-04-13] VITALS (99 sets, daily range): BP systolic 66–154; BP diastolic 19–90; TEMP 97.9–99.7; O2SAT 64–100
[2025-04-13 04:52] LABS: PLATELET COUNT (AUTO) 192 K/uL (179-408); RED BLOOD CELL COUNT(AUTO) 5.19 MIL/uL (3.63-4.92); RED CELL DISTRIBUTION WIDTH 17.4 % (12.3-17.7); WHITE BLOOD COUNT (AUTO) 8.0 K/uL (3.8-11.8)
[2025-04-13 05:02] LABS: CREATININE 5.7 mg/dL (0.6-1.3); SODIUM SERUM 141.0 mmol/L (136-145); UREA NITROGEN, BLOOD 49.0 mg/dL (7-18)
[2025-04-13] MEDS: ALBUMIN HUMAN 25% 100 ML IV PRN (13:18)
[2025-04-13] MEDS: VANCOMYCIN IV 500 MG in IV DEXTROSE 5% 100 ML IV ONE (15:03)
[2025-04-13] MEDS ORDERED: CEFEPIME HCL 1 G VIAL ONE (21:06)
[2025-04-14] VITALS (103 sets, daily range): BP systolic 71–148; BP diastolic 24–98; TEMP 98.9–99.5; O2SAT 77–100
[2025-04-14 05:28] LABS: PLATELET COUNT (AUTO) 185 K/uL (179-408); RED BLOOD CELL COUNT(AUTO) 5.28 MIL/uL (3.63-4.92); RED CELL DISTRIBUTION WIDTH 17.6 % (12.3-17.7); WHITE BLOOD COUNT (AUTO) 7.3 K/uL (3.8-11.8)
[2025-04-14 05:43] LABS: CREATININE 4.5 mg/dL (0.6-1.3); SODIUM SERUM 136.0 mmol/L (136-145); UREA NITROGEN, BLOOD 47.0 mg/dL (7-18)
[2025-04-14] MEDS ORDERED: BLOOD SUGAR DIAGNOSTIC 1 EACH STRIP VI SCH (07:30)
[2025-04-14] MEDS ORDERED: INSULIN REGULAR, HUMAN 1000 UNIT/10 ML VIAL SQ PRN (07:30)
[2025-04-14] MEDS ORDERED: DEXTROSE 50% 50 ML DISP.SYRIN IV PRN (07:30)
[2025-04-15] VITALS (106 sets, daily range): BP systolic 58–148; BP diastolic 15–107; TEMP 98.9–99.7; O2SAT 95–100
[2025-04-15 05:38] LABS: CREATININE 6.0 mg/dL (0.6-1.3); SODIUM SERUM 142.0 mmol/L (136-145); UREA NITROGEN, BLOOD 80.0 mg/dL (7-18)
[2025-04-15 05:39] LABS: PLATELET COUNT (AUTO) 220 K/uL (179-408); RED BLOOD CELL COUNT(AUTO) 5.54 MIL/uL (3.63-4.92); RED CELL DISTRIBUTION WIDTH 17.5 % (12.3-17.7); WHITE BLOOD COUNT (AUTO) 7.1 K/uL (3.8-11.8)
[2025-04-15] MEDS: QUETIAPINE FUMARATE 25 MG TABLET PO SCH (08:21)
[2025-04-15] MEDS ORDERED: VANCOMYCIN IV 500 MG in IV DEXTROSE 5% 100 ML IV ONE (17:00)
[2025-04-15] MEDS: VANCOMYCIN HCL 750 MG in IV DEXTROSE 5% 250 ML IV ONE (17:31)
[2025-04-16] VITALS (99 sets, daily range): BP systolic 55–155; BP diastolic 15–115; TEMP 98.8–100.7; O2SAT 78–100
[2025-04-16 04:22] LABS: PLATELET COUNT (AUTO) 192 K/uL (179-408); RED BLOOD CELL COUNT(AUTO) 5.63 MIL/uL (3.63-4.92); RED CELL DISTRIBUTION WIDTH 17.4 % (12.3-17.7); WHITE BLOOD COUNT (AUTO) 7.7 K/uL (3.8-11.8)
[2025-04-16 04:38] LABS: ASPARTATE AMINOTRANSFERASE 33.0 U/L (15-37); CREATININE 4.2 mg/dL (0.6-1.3); SODIUM SERUM 139.0 mmol/L (136-145); TOTAL PROTEIN, SERUM 9.6 g/dL (6.4-8.2); UREA NITROGEN, BLOOD 52.0 mg/dL (7-18)
[2025-04-16 04:45] LABS: LACTIC ACID 2.9 mmol/L (0.4-2.0)
[2025-04-16] MEDS ORDERED: LACTULOSE 20 G/30 ML LIQUID UDC PO PRN (08:45)
[2025-04-16] MEDS ORDERED: IV NORMAL SALINE 250 ML IV ONE (08:54)
[2025-04-16] MEDS ORDERED: SWABABLE VALVE TRANSFER SET EA MC ONE (08:55)
[2025-04-16] MEDS ORDERED: IOHEXOL 300MG/ML 100 ML INFUS..BTL ONE (08:55)
[2025-04-16] MEDS: MIRALAX 17 GM POWD.PACK GT SCH (09:50)
[2025-04-16] MEDS: POTASSIUM CHLORIDE 50 ML IV SCH (09:50)
[2025-04-17] VITALS (97 sets, daily range): BP systolic 65–154; BP diastolic 22–111; TEMP 98.6–100; O2SAT 95–100
[2025-04-17 05:27] LABS: PLATELET COUNT (AUTO) 155 K/uL (179-408); RED BLOOD CELL COUNT(AUTO) 5.16 MIL/uL (3.63-4.92); RED CELL DISTRIBUTION WIDTH 17.6 % (12.3-17.7); WHITE BLOOD COUNT (AUTO) 5.1 K/uL (3.8-11.8)
[2025-04-17 05:39] LABS: CREATININE 5.4 mg/dL (0.6-1.3); SODIUM SERUM 137.0 mmol/L (136-145)
[2025-04-17 05:43] LABS: UREA NITROGEN, BLOOD 97.0 mg/dL (7-18)
[2025-04-17] MEDS: MIDODRINE HCL 5 MG TABLET GT ONE (08:55)
[2025-04-17] MEDS ORDERED: VANCOMYCIN IV 500 MG in IV DEXTROSE 5% 100 ML IV PRN (10:00)
[2025-04-17] MEDS: MIDODRINE HCL 5 MG TABLET GT SCH (14:12)
[2025-04-18] VITALS (98 sets, daily range): BP systolic 72–145; BP diastolic 16–68; TEMP 96.2–99.7; O2SAT 96–100
[2025-04-18 04:58] LABS: PLATELET COUNT (AUTO) 137 K/uL (179-408); RED BLOOD CELL COUNT(AUTO) 4.60 MIL/uL (3.63-4.92); RED CELL DISTRIBUTION WIDTH 17.3 % (12.3-17.7); WHITE BLOOD COUNT (AUTO) 4.8 K/uL (3.8-11.8)
[2025-04-18 05:20] LABS: CREATININE 3.5 mg/dL (0.6-1.3); SODIUM SERUM 145.0 mmol/L (136-145); UREA NITROGEN, BLOOD 47.0 mg/dL (7-18)
[2025-04-18] MEDS ORDERED: HYDROCORTISONE SOD SUCCINATE 100 MG/2 ML VIAL IV ONE (21:19)
[2025-04-19] VITALS (98 sets, daily range): BP systolic 57–155; BP diastolic 18–102; TEMP 96.2–98.5; O2SAT 92–100
[2025-04-19] MEDS ORDERED: HYDROCORTISONE SOD SUCCINATE 100 MG/2 ML VIAL IV ONE ×2 (05:20→13:44)
[2025-04-19] MEDS ORDERED: QUETIAPINE FUMARATE 25 MG TABLET ONE (08:11)
[2025-04-19] MEDS ORDERED: MIDODRINE HCL 5 MG TABLET ONE ×3 (08:11→12:31)
[2025-04-19] MEDS ORDERED: DOCUSATE SODIUM 100 MG CAPSULE PO ONE (08:11)
[2025-04-19] MEDS ORDERED: APIXABAN 5 MG TABLET ONE (08:11)
[2025-04-19 09:08] LABS: SODIUM SERUM 142.0 mmol/L (136-145)
[2025-04-19 09:17] LABS: CREATININE 4.9 mg/dL (0.6-1.3)
[2025-04-19 09:30] LABS: UREA NITROGEN, BLOOD 89.0 mg/dL (7-18)
[2025-04-19] MEDS ORDERED: ACETAMINOPHEN 325 MG TABLET ONE (13:53)
[2025-04-19] MEDS: PIPERACILLIN/TAZO 2.25 G in IV DEXTROSE 5% 50 ML IV SCH (17:06)
[2025-04-19] MEDS: VANCOMYCIN IV 500 MG in IV DEXTROSE 5% 100 ML IV ONE (20:11)
[2025-04-20] VITALS (114 sets, daily range): BP systolic 46–157; BP diastolic 24–140; TEMP 98–99.6; O2SAT 90–100
[2025-04-20] MEDS ORDERED: TRAMADOL HCL 50 MG TABLET PO PRN ×2 (01:00→07:00)
[2025-04-20 05:16] LABS: PLATELET COUNT (AUTO) 121 K/uL (179-408); RED BLOOD CELL COUNT(AUTO) 4.25 MIL/uL (3.63-4.92); RED CELL DISTRIBUTION WIDTH 17.4 % (12.3-17.7); WHITE BLOOD COUNT (AUTO) 7.4 K/uL (3.8-11.8)
[2025-04-20 05:24] LABS: CREATININE 5.9 mg/dL (0.6-1.3); SODIUM SERUM 139.0 mmol/L (136-145)
[2025-04-20 05:27] LABS: UREA NITROGEN, BLOOD 114.0 mg/dL (7-18)
[2025-04-20] MEDS ORDERED: LACTULOSE 20 G/30 ML LIQUID UDC GT PRN (06:58)
[2025-04-20] MEDS ORDERED: MAGNESIUM HYDROXIDE 30 ML LIQUID UDC GT PRN (06:58)
[2025-04-20] MEDS ORDERED: DEXTROSE 50% 50 ML DISP.SYRIN IV PRN (18:45)
[2025-04-20] MEDS ORDERED: TRAMADOL HCL 50 MG TABLET ONE (22:40)
[2025-04-20] MEDS: TRAMADOL HCL 50 MG TABLET GT PRN (23:00)
[2025-04-21] VITALS (63 sets, daily range): BP systolic 59–145; BP diastolic 10–111; TEMP 98.4–99.7; O2SAT 94–100
[2025-04-21] MEDS ORDERED: BLOOD SUGAR DIAGNOSTIC 1 EACH STRIP VI SCH
[2025-04-21 00:02] LABS: PLATELET COUNT (AUTO) 127 K/uL (179-408); RED BLOOD CELL COUNT(AUTO) 4.53 MIL/uL (3.63-4.92); RED CELL DISTRIBUTION WIDTH 17.1 % (12.3-17.7); WHITE BLOOD COUNT (AUTO) 10.4 K/uL (3.8-11.8)
[2025-04-21 00:12] LABS: ABG BASE EXCESS -0.7 mmol/L (-2.0-3.0); ABG HCO3 21.2 mmol/L (21.0-28.0); ABG PCO2 27.6 mmHg (32.0-45.0); ABG PH 7.503 (7.350-7.450); ABG PO2 67.2 mmHg (83.0-108.0); ABG SITE RIGHT RADIAL; ABG TOTAL HEMOGLOBIN 13.1 G/dL (12.0-16.0); AaDO2 95.2 mmHg; FIO2 30.0 %; PEEP,BG 5.0 cmH20; SET RATE, BG 12.0; VT, ABG 234 mL
[2025-04-21 00:13] LABS: CREATININE 4.4 mg/dL (0.6-1.3); SODIUM SERUM 141.0 mmol/L (136-145); UREA NITROGEN, BLOOD 65.0 mg/dL (7-18)
[2025-04-21] MEDS: INSULIN REGULAR, HUMAN 1000 UNIT/10 ML VIAL SQ PRN (00:13)
[2025-04-21] MEDS ORDERED: NOREPINEPHRINE 8MG/NS 250ML 250 ML IV ONE (04:10)
[2025-04-21 05:28] LABS: PLATELET COUNT (AUTO) 139 K/uL (179-408); RED BLOOD CELL COUNT(AUTO) 4.57 MIL/uL (3.63-4.92); RED CELL DISTRIBUTION WIDTH 17.1 % (12.3-17.7); WHITE BLOOD COUNT (AUTO) 11.9 K/uL (3.8-11.8)
[2025-04-21] MEDS ORDERED: HYDROCORTISONE SOD SUCCINATE 100 MG/2 ML VIAL IV ONE ×3 (05:33→22:02)
[2025-04-21] MEDS ORDERED: LORAZEPAM 2 MG/1 ML VIAL ONE (05:36)
[2025-04-21] MEDS: LORAZEPAM 2 MG/1 ML VIAL IV ONE (05:39)
[2025-04-21 05:40] LABS: CREATININE 4.9 mg/dL (0.6-1.3); SODIUM SERUM 142.0 mmol/L (136-145); UREA NITROGEN, BLOOD 71.0 mg/dL (7-18)
[2025-04-21] MEDS ORDERED: APIXABAN 5 MG TABLET ONE ×2 (09:16→17:17)
[2025-04-21] MEDS ORDERED: DOCUSATE SODIUM 100 MG/10 ML LIQUID UDC ONE (09:16)
[2025-04-21] MEDS ORDERED: MIDODRINE HCL 5 MG TABLET ONE ×4 (09:16→17:16)
[2025-04-21] MEDS ORDERED: MIRALAX 17 GM POWD.PACK ONE (09:16)
[2025-04-21] MEDS ORDERED: QUETIAPINE FUMARATE 25 MG TABLET ONE ×2 (09:22→17:17)
[2025-04-21] MEDS ORDERED: POTASSIUM CHLORIDE 20 MEQ POWDER PACKET ONE (10:00)
[2025-04-21] MEDS: POTASSIUM CHLORIDE 20 MEQ POWDER PACKET GT ONE (10:50)
[2025-04-21] MEDS ORDERED: ONDANSETRON 4 MG/2 ML VIAL ONE (19:59)
[2025-04-21] MEDS: ONDANSETRON 4 MG/2 ML VIAL IV PRN (20:01)
[2025-04-22] VITALS (60 sets, daily range): BP systolic 88–142; BP diastolic 16–72; TEMP 98.7–101.3; O2SAT 96–100
[2025-04-22] MEDS ORDERED: INSULIN REGULAR, HUMAN 1000 UNIT/10 ML VIAL ONE (01:42)
[2025-04-22] MEDS ORDERED: NOREPINEPHRINE 8MG/NS 250ML 250 ML IV ONE (02:33)
[2025-04-22 04:40] LABS: PLATELET COUNT (AUTO) 142 K/uL (179-408); RED BLOOD CELL COUNT(AUTO) 5.03 MIL/uL (3.63-4.92); RED CELL DISTRIBUTION WIDTH 17.3 % (12.3-17.7); WHITE BLOOD COUNT (AUTO) 12.5 K/uL (3.8-11.8)
[2025-04-22 04:51] LABS: CREATININE 4.4 mg/dL (0.6-1.3); SODIUM SERUM 137.0 mmol/L (136-145); UREA NITROGEN, BLOOD 60.0 mg/dL (7-18)
[2025-04-22 05:38] LABS: EOSINOPHILS % (MANUAL) 1 % (0-8); LYMPHOCYTES % (MANUAL) 11 % (20-40); METAMYELOCYTES % 1 % (0-1); MONOCYTES % (MANUAL) 8 % (2-10); NEUTROPHILS % (MANUAL) 79 % (42-75); PLATELET ESTIMATE DECREASED
[2025-04-22] MEDS ORDERED: HYDROCORTISONE SOD SUCCINATE 100 MG/2 ML VIAL IV ONE ×3 (05:49→20:50)
[2025-04-22] MEDS ORDERED: DOCUSATE SODIUM 100 MG/10 ML LIQUID UDC ONE (09:35)
[2025-04-22] MEDS ORDERED: MIRALAX 17 GM POWD.PACK ONE (09:35)
[2025-04-22] MEDS ORDERED: QUETIAPINE FUMARATE 25 MG TABLET ONE ×2 (09:36→16:26)
[2025-04-22] MEDS ORDERED: MIDODRINE HCL 5 MG TABLET ONE ×2 (09:36→14:04)
[2025-04-22] MEDS ORDERED: APIXABAN 5 MG TABLET ONE ×2 (09:36→16:26)
[2025-04-22] MEDS: CEFTAZIDIME 2 G in IV DEXTROSE 5% 100 ML IV SCH (11:45)
[2025-04-22] MEDS: NOREPINEPHRINE BITARTRATE 32 MG in IV NORMAL SALINE 218 ML IV PRN (15:09)
[2025-04-22] MEDS ORDERED: ACETAMINOPHEN 325 MG TABLET ONE ×2 (16:25→20:50)
[2025-04-23] VITALS (73 sets, daily range): BP systolic 92–127; BP diastolic 26–69; TEMP 98–101.1; O2SAT 100
[2025-04-23] MEDS ORDERED: ACETAMINOPHEN 325 MG TABLET ONE ×2 (03:06→16:33)
[2025-04-23] MEDS ORDERED: HYDROCORTISONE SOD SUCCINATE 100 MG/2 ML VIAL IV ONE ×3 (04:59→22:13)
[2025-04-23 05:12] LABS: PLATELET COUNT (AUTO) 155 K/uL (179-408); RED BLOOD CELL COUNT(AUTO) 5.07 MIL/uL (3.63-4.92); RED CELL DISTRIBUTION WIDTH 17.4 % (12.3-17.7); WHITE BLOOD COUNT (AUTO) 11.2 K/uL (3.8-11.8)
[2025-04-23 05:23] LABS: CREATININE 5.9 mg/dL (0.6-1.3); SODIUM SERUM 140.0 mmol/L (136-145)
[2025-04-23 05:26] LABS: UREA NITROGEN, BLOOD 85.0 mg/dL (7-18)
[2025-04-23 05:57] LABS: EOSINOPHILS % (MANUAL) 5 % (0-8); LYMPHOCYTES % (MANUAL) 6 % (20-40); MONOCYTES % (MANUAL) 6 % (2-10); NEUTROPHILS % (MANUAL) 83 % (42-75)
[2025-04-23 06:12] LABS: PLATELET ESTIMATE DECREASED
[2025-04-23] MEDS ORDERED: DOCUSATE SODIUM 100 MG/10 ML LIQUID UDC ONE (08:53)
[2025-04-23] MEDS ORDERED: MIDODRINE HCL 5 MG TABLET ONE ×4 (08:53→17:04)
[2025-04-23] MEDS ORDERED: APIXABAN 5 MG TABLET ONE ×2 (08:53→17:07)
[2025-04-23] MEDS ORDERED: MIRALAX 17 GM POWD.PACK ONE (08:53)
[2025-04-23] MEDS ORDERED: QUETIAPINE FUMARATE 25 MG TABLET ONE ×2 (08:54→17:03)
[2025-04-23] MEDS ORDERED: TRAMADOL HCL 50 MG TABLET ONE ×2 (12:00→18:08)
[2025-04-23 18:16] LABS: ASPARTATE AMINOTRANSFERASE 15.0 U/L (15-37); TOTAL PROTEIN, SERUM 7.6 g/dL (6.4-8.2)
[2025-04-24] VITALS (96 sets, daily range): BP systolic 74–149; BP diastolic 44–83; TEMP 98.1–100.2; O2SAT 94–100
[2025-04-24] MEDS ORDERED: ACETAMINOPHEN 325 MG TABLET ONE ×3 (01:06→21:08)
[2025-04-24] MEDS: VANCOMYCIN IV 500 MG in IV DEXTROSE 5% 100 ML IV ONE (02:11)
[2025-04-24] MEDS: CEFTAZIDIME 2 G in IV DEXTROSE 5% 100 ML IV SCH (04:52)
[2025-04-24 04:54] LABS: PLATELET COUNT (AUTO) 168 K/uL (179-408); RED BLOOD CELL COUNT(AUTO) 5.50 MIL/uL (3.63-4.92); RED CELL DISTRIBUTION WIDTH 17.5 % (12.3-17.7); WHITE BLOOD COUNT (AUTO) 9.7 K/uL (3.8-11.8)
[2025-04-24] MEDS ORDERED: HYDROCORTISONE SOD SUCCINATE 100 MG/2 ML VIAL IV ONE ×3 (05:04→21:09)
[2025-04-24 05:16] LABS: CREATININE 4.3 mg/dL (0.6-1.3); SODIUM SERUM 137.0 mmol/L (136-145); UREA NITROGEN, BLOOD 51.0 mg/dL (7-18)
[2025-04-24 06:30] LABS: BASOPHILS % (MANUAL) 1 % (0-2); EOSINOPHILS % (MANUAL) 3 % (0-8); LYMPHOCYTES % (MANUAL) 15 % (20-40); MONOCYTES % (MANUAL) 19 % (2-10); NEUTROPHILS % (MANUAL) 62 % (42-75)
[2025-04-24 06:32] LABS: PLATELET ESTIMATE ADEQUATE
[2025-04-24] MEDS ORDERED: TRAMADOL HCL 50 MG TABLET ONE (07:27)
[2025-04-24] MEDS ORDERED: MIDODRINE HCL 5 MG TABLET ONE ×3 (08:24→16:26)
[2025-04-24] MEDS ORDERED: QUETIAPINE FUMARATE 25 MG TABLET ONE ×2 (08:25→16:26)
[2025-04-24] MEDS ORDERED: APIXABAN 5 MG TABLET ONE ×2 (08:25→16:26)
[2025-04-25] VITALS (86 sets, daily range): BP systolic 70–194; BP diastolic 42–113; TEMP 98.4–100.7; O2SAT 98–100
[2025-04-25 05:08] LABS: PLATELET COUNT (AUTO) 148 K/uL (179-408); RED BLOOD CELL COUNT(AUTO) 4.35 MIL/uL (3.63-4.92); RED CELL DISTRIBUTION WIDTH 17.5 % (12.3-17.7); WHITE BLOOD COUNT (AUTO) 7.2 K/uL (3.8-11.8)
[2025-04-25 05:17] LABS: CREATININE 5.8 mg/dL (0.6-1.3); SODIUM SERUM 133.0 mmol/L (136-145)
[2025-04-25 05:20] LABS: UREA NITROGEN, BLOOD 88.0 mg/dL (7-18)
[2025-04-25 05:38] LABS: LYMPHOCYTES % (MANUAL) 11 % (20-40); NEUTROPHILS % (MANUAL) 77 % (42-75)
[2025-04-25 05:39] LABS: EOSINOPHILS % (MANUAL) 1 % (0-8); MONOCYTES % (MANUAL) 11 % (2-10); PLATELET ESTIMATE DECREASED
[2025-04-25] MEDS ORDERED: HYDROCORTISONE SOD SUCCINATE 100 MG/2 ML VIAL IV ONE ×2 (06:43→14:55)
[2025-04-25] MEDS ORDERED: ACETAMINOPHEN 325 MG TABLET ONE (07:55)
[2025-04-25] MEDS ORDERED: MIDODRINE HCL 5 MG TABLET ONE ×2 (08:48→13:45)
[2025-04-25] MEDS ORDERED: APIXABAN 5 MG TABLET ONE (08:48)
[2025-04-25] MEDS ORDERED: QUETIAPINE FUMARATE 25 MG TABLET ONE (08:49)
[2025-04-25] MEDS ORDERED: AMOXICILLIN-CLAVUL 875-125MG TABLET PO SCH (17:00)
[2025-04-25] MEDS ORDERED: AMOXICILLIN-CLAVUL 875-125MG TABLET GT SCH ×2 (17:00)
[2025-04-25] MEDS ORDERED: AMOXICILLIN-CLAVU 250 MG/5 ML SUSPENSION 75 ML BOTTLE PO SCH (17:00)
[2025-04-25] MEDS: CHLORHEXIDINE GLUCONATE 15 ML MOUTHWASH MM SCH (21:40)
[2025-04-25] MEDS: AMOXICILLIN-CLAVUL 875-125MG TABLET GT SCH (21:40)
[2025-04-25] MEDS: INSULIN GLARGINE,HUM 300 UNITS/3 ML CARTRIDGE SQ SCH (21:42)
[2025-04-26] VITALS (95 sets, daily range): BP systolic 74–159; BP diastolic 46–89; TEMP 98.8–99.5; O2SAT 84–100
[2025-04-26 05:00] LABS: PLATELET COUNT (AUTO) 181 K/uL (179-408); RED BLOOD CELL COUNT(AUTO) 4.69 MIL/uL (3.63-4.92); RED CELL DISTRIBUTION WIDTH 17.0 % (12.3-17.7); WHITE BLOOD COUNT (AUTO) 8.8 K/uL (3.8-11.8)
[2025-04-26 05:08] LABS: CREATININE 3.0 mg/dL (0.6-1.3); SODIUM SERUM 135.0 mmol/L (136-145); UREA NITROGEN, BLOOD 37.0 mg/dL (7-18)
[2025-04-26] MEDS: VANCOMYCIN IV 500 MG in IV DEXTROSE 5% 100 ML IV ONE (05:53)
[2025-04-26] MEDS: POTASSIUM CHLORIDE 20 MEQ POWDER PACKET GT ONE (11:17)
[2025-04-26] MEDS: AMOXICILLIN-CLAVUL 500-125MG TABLET GT SCH (22:10)
[2025-04-27] VITALS (97 sets, daily range): BP systolic 75–149; BP diastolic 45–85; TEMP 98.7–99.8; O2SAT 91–100
[2025-04-27] MEDS ORDERED: ACETAMINOPHEN 325 MG TABLET ONE (00:59)
[2025-04-27 04:38] LABS: PLATELET COUNT (AUTO) 156 K/uL (179-408); RED BLOOD CELL COUNT(AUTO) 4.85 MIL/uL (3.63-4.92); RED CELL DISTRIBUTION WIDTH 17.2 % (12.3-17.7); WHITE BLOOD COUNT (AUTO) 9.0 K/uL (3.8-11.8)
[2025-04-27 04:45] LABS: CREATININE 4.8 mg/dL (0.6-1.3); SODIUM SERUM 140.0 mmol/L (136-145); UREA NITROGEN, BLOOD 75.0 mg/dL (7-18)
[2025-04-27] MEDS ORDERED: HYDROCORTISONE SOD SUCCINATE 100 MG/2 ML VIAL IV ONE ×3 (05:38→21:06)
[2025-04-27] MEDS ORDERED: DOCUSATE SODIUM 100 MG CAPSULE PO ONE (08:47)
[2025-04-27] MEDS ORDERED: MIRALAX 17 GM POWD.PACK ONE (08:47)
[2025-04-27] MEDS ORDERED: MIDODRINE HCL 5 MG TABLET ONE ×3 (08:48→17:41)
[2025-04-27] MEDS ORDERED: APIXABAN 5 MG TABLET ONE ×2 (08:48→17:41)
[2025-04-27] MEDS ORDERED: QUETIAPINE FUMARATE 25 MG TABLET ONE ×2 (08:48→17:41)
[2025-04-27] MEDS ORDERED: DOCUSATE SODIUM 100 MG/10 ML LIQUID UDC ONE (09:03)
[2025-04-27] MEDS ORDERED: TRAMADOL HCL 50 MG TABLET ONE (20:51)
[2025-04-27] MEDS: MICAFUNGIN SODIUM 50 MG in IV NORMAL SALINE 100 ML IV SCH (21:13)
[2025-04-27] MEDS ORDERED: AMOXICILLIN-CLAVUL 500-125MG TABLET ONE (22:37)
[2025-04-28] VITALS (94 sets, daily range): BP systolic 74–148; BP diastolic 48–86; TEMP 97.5–99.9; O2SAT 96–100
[2025-04-28] MEDS ORDERED: ACETAMINOPHEN 325 MG TABLET ONE (00:20)
[2025-04-28] MEDS ORDERED: ONDANSETRON 4 MG/2 ML VIAL ONE (01:04)
[2025-04-28] MEDS: METOCLOPRAMIDE HCL 10 MG/2 ML VIAL IV ONE (02:52)
[2025-04-28] MEDS ORDERED: METOCLOPRAMIDE HCL 10 MG/2 ML VIAL ONE (02:52)
[2025-04-28 05:09] LABS: PLATELET COUNT (AUTO) 155 K/uL (179-408); RED BLOOD CELL COUNT(AUTO) 4.93 MIL/uL (3.63-4.92); RED CELL DISTRIBUTION WIDTH 17.4 % (12.3-17.7); WHITE BLOOD COUNT (AUTO) 10.0 K/uL (3.8-11.8)
[2025-04-28 05:15] LABS: CREATININE 3.3 mg/dL (0.6-1.3); SODIUM SERUM 138.0 mmol/L (136-145); UREA NITROGEN, BLOOD 46.0 mg/dL (7-18)
[2025-04-28] MEDS ORDERED: HYDROCORTISONE SOD SUCCINATE 100 MG/2 ML VIAL IV ONE ×4 (05:32→21:21)
[2025-04-28] MEDS ORDERED: APIXABAN 5 MG TABLET ONE ×2 (08:46→18:44)
[2025-04-28] MEDS ORDERED: MIDODRINE HCL 5 MG TABLET ONE ×2 (08:46→18:44)
[2025-04-28] MEDS ORDERED: QUETIAPINE FUMARATE 25 MG TABLET ONE ×2 (08:47→18:44)
[2025-04-28] MEDS ORDERED: POTASSIUM CHLORIDE 20 MEQ POWDER PACKET ONE (09:34)
[2025-04-28] MEDS: POTASSIUM CHLORIDE 20 MEQ POWDER PACKET GT ONE (09:37)
[2025-04-28] MEDS: QUETIAPINE FUMARATE 25 MG TABLET PO SCH (18:45)
[2025-04-28] MEDS ORDERED: AMOXICILLIN-CLAVUL 500-125MG TABLET ONE (22:20)
[2025-04-29] VITALS (96 sets, daily range): BP systolic 75–150; BP diastolic 45–89; TEMP 97.4–99.6; O2SAT 98–100
[2025-04-29 04:54] LABS: PLATELET COUNT (AUTO) 150 K/uL (179-408); RED BLOOD CELL COUNT(AUTO) 4.69 MIL/uL (3.63-4.92); RED CELL DISTRIBUTION WIDTH 17.8 % (12.3-17.7); WHITE BLOOD COUNT (AUTO) 15.9 K/uL (3.8-11.8)
[2025-04-29 05:13] LABS: CREATININE 4.8 mg/dL (0.6-1.3); SODIUM SERUM 136.0 mmol/L (136-145)
[2025-04-29 05:20] LABS: UREA NITROGEN, BLOOD 86.0 mg/dL (7-18)
[2025-04-29] MEDS ORDERED: HYDROCORTISONE SOD SUCCINATE 100 MG/2 ML VIAL IV ONE ×3 (05:26→22:14)
[2025-04-29] MEDS ORDERED: DOCUSATE SODIUM 100 MG/10 ML LIQUID UDC ONE (08:26)
[2025-04-29] MEDS ORDERED: MIRALAX 17 GM POWD.PACK ONE (08:26)
[2025-04-29] MEDS ORDERED: MIDODRINE HCL 5 MG TABLET ONE ×3 (08:27→17:23)
[2025-04-29] MEDS ORDERED: APIXABAN 5 MG TABLET ONE ×2 (08:27→17:24)
[2025-04-29] MEDS ORDERED: QUETIAPINE FUMARATE 25 MG TABLET ONE ×2 (08:27→17:24)
[2025-04-29 08:58] LABS: ASPARTATE AMINOTRANSFERASE 31.0 U/L (15-37); TOTAL PROTEIN, SERUM 7.8 g/dL (6.4-8.2)
[2025-04-29] MEDS ORDERED: TRAMADOL HCL 50 MG TABLET ONE ×2 (09:22→22:42)
[2025-04-29] MEDS ORDERED: ALBUMIN HUMAN 25% 100 ML ONE ×2 (12:01→17:23)
[2025-04-29] MEDS: ALBUMIN HUMAN 25% 100 ML IV SCH (12:03)
[2025-04-29] MEDS: CLOTRIMAZOLE 1% CREAM 30 GM TUBE TOP SCH (15:50)
[2025-04-29] MEDS: VANCOMYCIN IV 500 MG in IV DEXTROSE 5% 100 ML IV ONE (20:08)
[2025-04-29] MEDS ORDERED: ACETAMINOPHEN 325 MG TABLET ONE (23:42)
[2025-04-30] VITALS (106 sets, daily range): BP systolic 89–152; BP diastolic 36–79; TEMP 97.5–100.5; O2SAT 94–100
[2025-04-30] MEDS ORDERED: ALBUMIN HUMAN 25% 50 ML ONE ×3 (00:49→18:09)
[2025-04-30] MEDS ORDERED: NOREPINEPHRINE BITARTRATE 4 MG/4 ML VIAL IV ONE (02:45)
[2025-04-30] MEDS ORDERED: SIMETHICONE 80 MG TAB.CHEW PO PRN (03:00)
[2025-04-30 03:09] LABS: ABG BASE EXCESS 1.7 mmol/L (-2.0-3.0); ABG HCO3 26.2 mmol/L (21.0-28.0); ABG PCO2 40.5 mmHg (32.0-45.0); ABG PH 7.428 (7.350-7.450); ABG PO2 57.7 mmHg (83.0-108.0); ABG SITE LEFT BRACHIAL; ABG TOTAL HEMOGLOBIN 9.4 G/dL (12.0-16.0); AaDO2 90.7 mmHg; FIO2 30.0 %; PEEP,BG 5.0 cmH20; SET RATE, BG 12.0; VT, ABG 300 mL
[2025-04-30] MEDS ORDERED: ADENOSINE 6 MG/2 ML SYR IV ONE ×2 (03:35→03:45)
[2025-04-30] MEDS ORDERED: PHENYLEPHRINE 10 MG/1 ML VIAL ONE (04:01)
[2025-04-30 04:36] LABS: PLATELET COUNT (AUTO) 129 K/uL (179-408); RED BLOOD CELL COUNT(AUTO) 3.33 MIL/uL (3.63-4.92); RED CELL DISTRIBUTION WIDTH 18.2 % (12.3-17.7); WHITE BLOOD COUNT (AUTO) 8.3 K/uL (3.8-11.8)
[2025-04-30] MEDS: PHENYLEPHRINE IV 50 MG in IV NORMAL SALINE 245 ML IV PRN (04:36)
[2025-04-30 04:53] LABS: CREATININE 6.0 mg/dL (0.6-1.3); SODIUM SERUM 141.0 mmol/L (136-145)
[2025-04-30 05:00] LABS: UREA NITROGEN, BLOOD 149.0 mg/dL (7-18)
[2025-04-30] MEDS ORDERED: IV NORMAL SALINE 250 ML IV ONE (05:51)
[2025-04-30] MEDS ORDERED: IOHEXOL 350 100 ML INFUS..BTL ONE (05:51)
[2025-04-30] MEDS ORDERED: SWABABLE VALVE TRANSFER SET EA MC ONE (05:51)
[2025-04-30] MEDS ORDERED: ALBUMIN HUMAN 25% 100 ML ONE (06:14)
[2025-04-30] MEDS ORDERED: HYDROCORTISONE SOD SUCCINATE 100 MG/2 ML VIAL IV ONE ×3 (06:14→21:57)
[2025-04-30] MEDS ORDERED: ADENOSINE 6 MG/2 ML SYR IV PRN (06:15)
[2025-04-30] MEDS ORDERED: DOBUTamine IV 250 ML IV PRN (06:15)
[2025-04-30] MEDS: ADENOSINE 6 MG/2 ML SYR IV ONE (06:27)
[2025-04-30] MEDS ORDERED: DOBUTAMINE IV ONE (06:43)
[2025-04-30] MEDS ORDERED: AMOXICILLIN-CLAVUL 500-125MG TABLET ONE (07:56)
[2025-04-30] MEDS ORDERED: PANTOPRAZOLE SODIUM IV 80 MG in IV DEXTROSE 5% 500 ML IV SCH (08:45)
[2025-04-30] MEDS: PANTOPRAZOLE SODIUM IV 80 MG in IV DEXTROSE 5% 100 ML IV ONE (11:15)
[2025-04-30] MEDS: PHENYLEPHRINE IV 100 MG in IV NORMAL SALINE 240 ML IV PRN (13:28)
[2025-04-30] MEDS ORDERED: ALBUMIN HUMAN 25% 150 ML ONE (18:11)
[2025-04-30] MEDS: ALBUMIN HUMAN 25% 100 ML IV PRN (21:22)
[2025-04-30] MEDS ORDERED: PANTOPRAZOLE SODIUM 40 MG VIAL ONE (21:35)
[2025-04-30] MEDS: PANTOPRAZOLE SODIUM 40 MG VIAL IV SCH (21:38)
[2025-05-01] VITALS (98 sets, daily range): BP systolic 88–142; BP diastolic 43–84; TEMP 97.1–100.6; O2SAT 94–100
[2025-05-01 04:05] LABS: PLATELET COUNT (AUTO) 73 K/uL (179-408); RED BLOOD CELL COUNT(AUTO) 2.64 MIL/uL (3.63-4.92); RED CELL DISTRIBUTION WIDTH 16.4 % (12.3-17.7); WHITE BLOOD COUNT (AUTO) 17.7 K/uL (3.8-11.8)
[2025-05-01 04:12] LABS: CREATININE 4.2 mg/dL (0.6-1.3); SODIUM SERUM 145.0 mmol/L (136-145)
[2025-05-01 04:13] LABS: UREA NITROGEN, BLOOD 143.0 mg/dL (7-18)
[2025-05-01 04:14] LABS: NEUTROPHILS % (MANUAL) 0 % (42-75)
[2025-05-01] MEDS ORDERED: HYDROCORTISONE SOD SUCCINATE 100 MG/2 ML VIAL IV ONE (05:04)
[2025-05-01] MEDS ORDERED: IV LACTATED RINGERS SOLUTION 1,000 ML BAG IV ONE (10:00)
[2025-05-01] MEDS: ALBUMIN HUMAN 25% 50 ML IV SCH (10:29)
[2025-05-01] MEDS: IV LACTATED RINGERS SOLUTION 1,000 ML IV ONE (10:30)
[2025-05-01 12:03] LABS: PLATELET COUNT (AUTO) 70 K/uL (179-408); RED BLOOD CELL COUNT(AUTO) 2.64 MIL/uL (3.63-4.92); RED CELL DISTRIBUTION WIDTH 15.8 % (12.3-17.7); WHITE BLOOD COUNT (AUTO) 16.8 K/uL (3.8-11.8)
[2025-05-01] MEDS: PHENYLEPHRINE IV 100 MG in IV NORMAL SALINE 240 ML IV PRN (12:16)
[2025-05-01] MEDS ORDERED: ROCURONIUM BROMIDE 50 MG/5 ML VIAL ONE (12:40)
[2025-05-01] MEDS ORDERED: ETOMIDATE 20 MG/10 ML VIAL ONE (12:45)
[2025-05-01] MEDS: IV LACTATED RINGERS SOLUTION 1,000 ML IV PRN (13:16)
[2025-05-01] MEDS ORDERED: VANCOMYCIN IV 500 MG in IV DEXTROSE 5% 100 ML IV ONE (16:00)
[2025-05-01] MEDS ORDERED: NOREPINEPHRINE 8MG/NS 250ML 250 ML IV PRN (18:45)
[2025-05-01 21:25] LABS: PLATELET COUNT (AUTO) 79.0 K/uL (179-408)
[2025-05-02] VITALS (93 sets, daily range): BP systolic 76–149; BP diastolic 38–73; TEMP 97.3–99; O2SAT 97–100
[2025-05-02 03:35] LABS: PLATELET COUNT (AUTO) 76.0 K/uL (179-408)
[2025-05-02 05:09] LABS: PLATELET COUNT (AUTO) 75 K/uL (179-408); RED CELL DISTRIBUTION WIDTH 15.9 % (12.3-17.7); WHITE BLOOD COUNT (AUTO) 12.4 K/uL (3.8-11.8)
[2025-05-02 05:17] LABS: CREATININE 2.2 mg/dL (0.6-1.3); SODIUM SERUM 142.0 mmol/L (136-145); UREA NITROGEN, BLOOD 54.0 mg/dL (7-18)
[2025-05-02 05:27] LABS: RED BLOOD CELL COUNT(AUTO) 2.18 MIL/uL (3.63-4.92)
[2025-05-02 06:10] LABS: LYMPHOCYTES % (MANUAL) 6 % (20-40); MONOCYTES % (MANUAL) 4 % (2-10); NEUTROPHILS % (MANUAL) 90 % (42-75); PLATELET ESTIMATE DECREASED
[2025-05-02] MEDS ORDERED: IV LACTATED RINGERS SOLUTION 1,000 ML BAG IV ONE (07:45)
[2025-05-02] MEDS: IV LACTATED RINGERS SOLUTION 1,000 ML IV ONE (07:46)
[2025-05-02] MEDS: MAGNESIUM SULFATE/D5W 100 ML IV SCH (09:35)
[2025-05-02] MEDS ORDERED: MIDODRINE HCL 5 MG TABLET ONE (16:26)
[2025-05-02] MEDS ORDERED: QUETIAPINE FUMARATE 25 MG TABLET ONE (16:26)
[2025-05-02] MEDS: NEUTRA PHOS PACKET PO ONE (16:32)
[2025-05-02] MEDS ORDERED: PANTOPRAZOLE SODIUM 40 MG VIAL ONE (20:12)
[2025-05-02] MEDS ORDERED: HYDROCORTISONE SOD SUCCINATE 100 MG/2 ML VIAL IV ONE (21:29)
[2025-05-03] VITALS (94 sets, daily range): BP systolic 114–157; BP diastolic 52–76; TEMP 97.8–100.1; O2SAT 95–100
[2025-05-03 05:08] LABS: PLATELET COUNT (AUTO) 120 K/uL (179-408); RED BLOOD CELL COUNT(AUTO) 3.15 MIL/uL (3.63-4.92); RED CELL DISTRIBUTION WIDTH 16.1 % (12.3-17.7); WHITE BLOOD COUNT (AUTO) 12.9 K/uL (3.8-11.8)
[2025-05-03 05:16] LABS: CREATININE 2.1 mg/dL (0.6-1.3); SODIUM SERUM 141.0 mmol/L (136-145); UREA NITROGEN, BLOOD 39.0 mg/dL (7-18)
[2025-05-03 05:26] LABS: NEUTROPHILS % (MANUAL) 92 % (42-75)
[2025-05-03 05:27] LABS: LYMPHOCYTES % (MANUAL) 3 % (20-40); MONOCYTES % (MANUAL) 5 % (2-10); PLATELET ESTIMATE DECREASED
[2025-05-03] MEDS ORDERED: HYDROCORTISONE SOD SUCCINATE 100 MG/2 ML VIAL IV ONE (05:27)
[2025-05-03 05:28] LABS: NUCLEATED RED BLOOD CELLS 2.0 /100WBC
[2025-05-03] MEDS ORDERED: PANTOPRAZOLE SODIUM 40 MG VIAL ONE (08:24)
[2025-05-03] MEDS ORDERED: QUETIAPINE FUMARATE 25 MG TABLET ONE (08:25)
[2025-05-03] MEDS ORDERED: ACETAMINOPHEN 325 MG TABLET ONE (08:25)
[2025-05-03] MEDS ORDERED: MIDODRINE HCL 5 MG TABLET ONE (08:25)
[2025-05-03] MEDS ORDERED: TRAMADOL HCL 50 MG TABLET ONE (09:40)
[2025-05-03] MEDS: HYDROCORTISONE SOD SUCCINATE 100 MG/2 ML VIAL IV SCH (17:05)
[2025-05-03] MEDS: AMOXICILLIN-CLAVUL 500-125MG TABLET PO SCH (20:20)
[2025-05-03] MEDS ORDERED: AMOXICILLIN-CLAVUL 875-125MG TABLET PO SCH (21:00)
[2025-05-04] VITALS (97 sets, daily range): BP systolic 102–154; BP diastolic 44–78; TEMP 97.7–98.4; O2SAT 99–100
[2025-05-04 05:38] LABS: PLATELET COUNT (AUTO) 128 K/uL (179-408); RED BLOOD CELL COUNT(AUTO) 2.93 MIL/uL (3.63-4.92); RED CELL DISTRIBUTION WIDTH 16.1 % (12.3-17.7); WHITE BLOOD COUNT (AUTO) 8.0 K/uL (3.8-11.8)
[2025-05-04 05:58] LABS: LYMPHOCYTES % (MANUAL) 9 % (20-40); MONOCYTES % (MANUAL) 6 % (2-10); NEUTROPHILS % (MANUAL) 85 % (42-75); PLATELET ESTIMATE DECREASED
[2025-05-04 06:02] LABS: CREATININE 3.1 mg/dL (0.6-1.3); SODIUM SERUM 141.0 mmol/L (136-145); UREA NITROGEN, BLOOD 50.0 mg/dL (7-18)
[2025-05-04] MEDS: MICAFUNGIN SODIUM 100 MG in IV NORMAL SALINE 100 ML IV SCH (20:43)
[2025-05-04] MEDS ORDERED: CLARITHROMYCIN 500 MG TABLET PO SCH ×2 (21:00)
[2025-05-04] MEDS: METRONIDAZOLE 500 MG/NS 100ML 500 MG in PREMIXED 1 EACH IV SCH (21:44)
[2025-05-05] VITALS (69 sets, daily range): BP systolic 98–150; BP diastolic 45–84; TEMP 98.2–98.7; O2SAT 94–100
[2025-05-05 05:38] LABS: PLATELET COUNT (AUTO) 108 K/uL (179-408); RED BLOOD CELL COUNT(AUTO) 2.98 MIL/uL (3.63-4.92); RED CELL DISTRIBUTION WIDTH 16.3 % (12.3-17.7); WHITE BLOOD COUNT (AUTO) 6.4 K/uL (3.8-11.8)
[2025-05-05 05:51] LABS: CREATININE 2.7 mg/dL (0.6-1.3); SODIUM SERUM 137.0 mmol/L (136-145); UREA NITROGEN, BLOOD 39.0 mg/dL (7-18)
[2025-05-05 05:58] LABS: LYMPHOCYTES % (MANUAL) 6 % (20-40); MONOCYTES % (MANUAL) 7 % (2-10); NEUTROPHILS % (MANUAL) 87 % (42-75); NUCLEATED RED BLOOD CELLS 1.0 /100WBC
[2025-05-05 05:59] LABS: PLATELET ESTIMATE DECREASED
[2025-05-05] MEDS: IPRATROPIUM BROMIDE 0.5 MG/2.5 ML NEBU NEB PRN (13:15)
[2025-05-05] MEDS: ALBUTEROL SULFATE 2.5 MG/3 ML NEBU NEB PRN (13:15)
[2025-05-05] MEDS: POTASSIUM CHLORIDE 20 MEQ POWDER PACKET GT ONE (13:47)
[2025-05-06] VITALS (62 sets, daily range): BP systolic 91–166; BP diastolic 29–93; TEMP 97.5–98.5; O2SAT 96–100
[2025-05-06 05:11] LABS: PLATELET COUNT (AUTO) 120 K/uL (179-408); RED BLOOD CELL COUNT(AUTO) 3.34 MIL/uL (3.63-4.92); RED CELL DISTRIBUTION WIDTH 16.8 % (12.3-17.7); WHITE BLOOD COUNT (AUTO) 6.6 K/uL (3.8-11.8)
[2025-05-06 05:25] LABS: CREATININE 3.7 mg/dL (0.6-1.3); SODIUM SERUM 138.0 mmol/L (136-145); UREA NITROGEN, BLOOD 61.0 mg/dL (7-18)
[2025-05-06] MEDS: MIDODRINE HCL 5 MG TABLET GT SCH (13:30)
[2025-05-06] MEDS: HYDROCORTISONE SOD SUCCINATE 100 MG/2 ML VIAL IV SCH (18:32)
[2025-05-07] VITALS (29 sets, daily range): BP systolic 96–163; BP diastolic 36–86; TEMP 97.7–98.8; O2SAT 99–100
[2025-05-07 05:21] LABS: PLATELET COUNT (AUTO) 111 K/uL (179-408); RED BLOOD CELL COUNT(AUTO) 3.16 MIL/uL (3.63-4.92); RED CELL DISTRIBUTION WIDTH 16.3 % (12.3-17.7); WHITE BLOOD COUNT (AUTO) 5.2 K/uL (3.8-11.8)
[2025-05-07 05:31] LABS: CREATININE 2.6 mg/dL (0.6-1.3); SODIUM SERUM 143.0 mmol/L (136-145); UREA NITROGEN, BLOOD 37.0 mg/dL (7-18)
[2025-05-08] VITALS (9 sets, daily range): BP systolic 93–172; BP diastolic 36–68; TEMP 97.6–99.8; O2SAT 93–100
[2025-05-08 06:37] LABS: PLATELET COUNT (AUTO) 109 K/uL (179-408); RED BLOOD CELL COUNT(AUTO) 3.14 MIL/uL (3.63-4.92); RED CELL DISTRIBUTION WIDTH 16.8 % (12.3-17.7); WHITE BLOOD COUNT (AUTO) 5.4 K/uL (3.8-11.8)
[2025-05-08 06:59] LABS: CREATININE 3.8 mg/dL (0.6-1.3); SODIUM SERUM 141.0 mmol/L (136-145); UREA NITROGEN, BLOOD 59.0 mg/dL (7-18)
[2025-05-08] MEDS ORDERED: NEPRO 1000 ML GT PRN (07:30)
[2025-05-08] MEDS: PANTOPRAZOLE ORAL SUSPENSION 40 MG SUSPDR.PKT GT SCH (08:35)
[2025-05-08] MEDS: REMEDY ESSENTIAL ZINC PASTE 113 GM TP PRN (08:40)
[2025-05-08] MEDS: POTASSIUM CHLORIDE 20 MEQ POWDER PACKET GT ONE (11:19)
[2025-05-08] MEDS ORDERED: MICAFUNGIN SODIUM 100 MG VIAL IV ONE (20:51)
[2025-05-09 05:33] VITALS: BP 101/59; TEMP 98.6; O2SAT 98
[2025-05-09 06:46] LABS: PLATELET COUNT (AUTO) 105 K/uL (179-408); RED BLOOD CELL COUNT(AUTO) 2.65 MIL/uL (3.63-4.92); RED CELL DISTRIBUTION WIDTH 17.2 % (12.3-17.7); WHITE BLOOD COUNT (AUTO) 5.2 K/uL (3.8-11.8)
[2025-05-09 07:08] LABS: CREATININE 4.7 mg/dL (0.6-1.3); SODIUM SERUM 141.0 mmol/L (136-145)
[2025-05-09 07:16] LABS: UREA NITROGEN, BLOOD 84.0 mg/dL (7-18)
[2025-05-09 07:42] VITALS: BP 95/77; TEMP 98; O2SAT 100
[2025-05-09] MEDS: HYDROCORTISONE SOD SUCCINATE 100 MG/2 ML VIAL IV SCH (08:42)
[2025-05-09 10:36] VITALS: BP 115/65; TEMP 98.2; O2SAT 100
[2025-05-09 16:13] VITALS: BP 119/64; TEMP 98.6; O2SAT 100
[2025-05-09 19:00] VITALS: BP 108/36; TEMP 98.8; O2SAT 94
[2025-05-10] VITALS (11 sets, daily range): BP systolic 87–155; BP diastolic 35–85; TEMP 97.1–99.2; O2SAT 99–100
[2025-05-10 06:59] LABS: CREATININE 4.6 mg/dL (0.6-1.3); SODIUM SERUM 141.0 mmol/L (136-145)
[2025-05-10 07:00] LABS: UREA NITROGEN, BLOOD 110.0 mg/dL (7-18)
[2025-05-10 07:09] LABS: PLATELET COUNT (AUTO) 96 K/uL (179-408); RED CELL DISTRIBUTION WIDTH 17.8 % (12.3-17.7); WHITE BLOOD COUNT (AUTO) 7.9 K/uL (3.8-11.8)
[2025-05-10 07:13] LABS: RED BLOOD CELL COUNT(AUTO) 2.36 MIL/uL (3.63-4.92)
[2025-05-10 07:59] LABS: *OCCULT BLOOD STOOL POSITIVE (NEGATIVE)
[2025-05-10] MEDS: PANTOPRAZOLE SODIUM 40 MG VIAL IV SCH (08:10)
[2025-05-10] MEDS: diphenhydrAMINE 50 MG/1 ML VIAL IV ONE (13:56)
[2025-05-10 14:20] LABS: BAND % (MANUAL) 4 % (0-10); LYMPHOCYTES % (MANUAL) 9 % (20-40); MONOCYTES % (MANUAL) 5 % (2-10); NEUTROPHILS % (MANUAL) 82 % (42-75); PLATELET ESTIMATE DECREASED
[2025-05-11] VITALS (16 sets, daily range): BP systolic 99–153; BP diastolic 39–74; TEMP 98.1–99.3; O2SAT 95–100
[2025-05-11 07:05] LABS: PLATELET COUNT (AUTO) 101 K/uL (179-408); RED CELL DISTRIBUTION WIDTH 17.5 % (12.3-17.7); WHITE BLOOD COUNT (AUTO) 8.8 K/uL (3.8-11.8)
[2025-05-11 07:08] LABS: RED BLOOD CELL COUNT(AUTO) 2.34 MIL/uL (3.63-4.92)
[2025-05-11 07:15] LABS: CREATININE 5.5 mg/dL (0.6-1.3); SODIUM SERUM 142.0 mmol/L (136-145)
[2025-05-11 07:24] LABS: UREA NITROGEN, BLOOD 146.0 mg/dL (7-18)
[2025-05-11 08:48] LABS: EOSINOPHILS % (MANUAL) 1 % (0-8); LYMPHOCYTES % (MANUAL) 14 % (20-40); MONOCYTES % (MANUAL) 6 % (2-10); NEUTROPHILS % (MANUAL) 79 % (42-75); PLATELET ESTIMATE DECREASED
[2025-05-11] MEDS: DESMOPRESSIN INJ 30 MCG in IV NORMAL SALINE 50 ML IV ONE (10:41)
[2025-05-11] MEDS: diphenhydrAMINE 50 MG/1 ML VIAL IV ONE (13:43)
[2025-05-12 05:33] VITALS: BP 141/75; TEMP 98; O2SAT 100
[2025-05-12 06:54] LABS: PLATELET COUNT (AUTO) 90 K/uL (179-408); RED BLOOD CELL COUNT(AUTO) 2.77 MIL/uL (3.63-4.92); RED CELL DISTRIBUTION WIDTH 16.2 % (12.3-17.7); WHITE BLOOD COUNT (AUTO) 7.0 K/uL (3.8-11.8)
[2025-05-12 08:00] VITALS: BP 130/68; TEMP 98.4; O2SAT 100
[2025-05-12 09:46] LABS: CREATININE 4.0 mg/dL (0.6-1.3); SODIUM SERUM 140.0 mmol/L (136-145)
[2025-05-12 09:49] LABS: UREA NITROGEN, BLOOD 85.0 mg/dL (7-18)
[2025-05-12 11:05] VITALS: BP 121/55; TEMP 98; O2SAT 100
[2025-05-12 15:25] VITALS: BP 126/66; TEMP 98.4; O2SAT 99
[2025-05-12] MEDS ORDERED: ETOMIDATE 20 MG/10 ML VIAL ONE (17:15)
[2025-05-12] MEDS ORDERED: LIDOCAINE-MPF 2% 5 ML VIAL ONE (17:15)
[2025-05-12 19:23] VITALS: BP 103/63; TEMP 98; O2SAT 100
[2025-05-12] MEDS: SUCRALFATE 1 G/10 ML LIQUID UDC GT SCH (22:05)
[2025-05-12 23:48] VITALS: BP 126/63; TEMP 97.6; O2SAT 98
[2025-05-13 05:54] VITALS: BP 127/70; TEMP 98; O2SAT 100
[2025-05-13 06:58] LABS: PLATELET COUNT (AUTO) 85 K/uL (179-408); RED BLOOD CELL COUNT(AUTO) 2.71 MIL/uL (3.63-4.92); RED CELL DISTRIBUTION WIDTH 16.1 % (12.3-17.7); WHITE BLOOD COUNT (AUTO) 4.6 K/uL (3.8-11.8)
[2025-05-13 07:35] VITALS: BP 135/69; TEMP 98.4; O2SAT 100
[2025-05-13 07:37] LABS: CREATININE 2.7 mg/dL (0.6-1.3); SODIUM SERUM 142.0 mmol/L (136-145); UREA NITROGEN, BLOOD 39.0 mg/dL (7-18)
[2025-05-13] MEDS: POTASSIUM CHLORIDE 20 MEQ POWDER PACKET GT ONE (09:52)
[2025-05-13 11:32] VITALS: BP 132/68; TEMP 98.9; O2SAT 100
[2025-05-13 16:00] VITALS: BP 126/66; TEMP 98.9; O2SAT 100
[2025-05-13 19:19] VITALS: BP 140/66; TEMP 98.7; O2SAT 100
[2025-05-13 23:15] VITALS: BP 104/57; TEMP 98.1; O2SAT 100
[2025-05-14 05:24] VITALS: BP 131/73; TEMP 98.5; O2SAT 100
[2025-05-14 07:03] LABS: PLATELET COUNT (AUTO) 88 K/uL (179-408); RED BLOOD CELL COUNT(AUTO) 2.54 MIL/uL (3.63-4.92); RED CELL DISTRIBUTION WIDTH 16.3 % (12.3-17.7); WHITE BLOOD COUNT (AUTO) 4.5 K/uL (3.8-11.8)
[2025-05-14 07:24] LABS: CREATININE 3.8 mg/dL (0.6-1.3); SODIUM SERUM 142.0 mmol/L (136-145); UREA NITROGEN, BLOOD 43.0 mg/dL (7-18)
[2025-05-14 07:30] VITALS: BP 137/71; TEMP 98.8; O2SAT 100
[2025-05-14 08:59] LABS: EOSINOPHILS % (MANUAL) 3 % (0-8); LYMPHOCYTES % (MANUAL) 11 % (20-40); MONOCYTES % (MANUAL) 9 % (2-10); NEUTROPHILS % (MANUAL) 78 % (42-75); PLATELET ESTIMATE DECREASED
[2025-05-14 11:31] VITALS: BP 113/50; TEMP 98.8; O2SAT 95
[2025-05-14 16:00] VITALS: BP 94/60; TEMP 98.9; O2SAT 100
[2025-05-14 21:35] VITALS: BP 124/65; TEMP 98.8; O2SAT 100
[2025-05-15 00:50] VITALS: BP 142/70; TEMP 98.5; O2SAT 100
[2025-05-15 04:22] VITALS: BP 145/78; TEMP 98; O2SAT 99
[2025-05-15 07:58] VITALS: BP 153/76; TEMP 98.9; O2SAT 100
[2025-05-15 11:15] VITALS: BP 121/65; TEMP 98.5; O2SAT 98
[2025-05-15 15:35] VITALS: BP 114/59; TEMP 98.3; O2SAT 97
[2025-05-15 15:50] LABS: PLATELET COUNT (AUTO) 102 K/uL (179-408); RED BLOOD CELL COUNT(AUTO) 2.58 MIL/uL (3.63-4.92); RED CELL DISTRIBUTION WIDTH 16.3 % (12.3-17.7); WHITE BLOOD COUNT (AUTO) 6.0 K/uL (3.8-11.8)
[2025-05-15 15:58] LABS: CREATININE 5.3 mg/dL (0.6-1.3); SODIUM SERUM 142.0 mmol/L (136-145); UREA NITROGEN, BLOOD 69.0 mg/dL (7-18)
[2025-05-15 19:24] VITALS: BP 91/44; TEMP 97; O2SAT 100
[2025-05-16 00:06] VITALS: BP 144/67; TEMP 96.2; O2SAT 100
[2025-05-16 05:57] VITALS: BP 132/67; TEMP 98.7; O2SAT 100
[2025-05-16 06:42] LABS: PLATELET COUNT (AUTO) 92 K/uL (179-408); RED CELL DISTRIBUTION WIDTH 16.6 % (12.3-17.7); WHITE BLOOD COUNT (AUTO) 7.1 K/uL (3.8-11.8)
[2025-05-16 07:02] LABS: CREATININE 4.0 mg/dL (0.6-1.3); SODIUM SERUM 142.0 mmol/L (136-145); UREA NITROGEN, BLOOD 56.0 mg/dL (7-18)
[2025-05-16 07:04] LABS: RED BLOOD CELL COUNT(AUTO) 2.45 MIL/uL (3.63-4.92)
[2025-05-16 07:30] VITALS: BP 140/69; TEMP 98.6; O2SAT 100
[2025-05-16] MEDS ORDERED: EPOETIN ALFA 10,000 UNITS/ML VIAL SQ SCH (09:15)
[2025-05-16] MEDS: DEXTROSE 5% IV ONE (10:07)
[2025-05-16] MEDS: SODIUM PHOSPHATE MM IV ONE (10:07)
[2025-05-16 10:40] VITALS: BP 119/59; TEMP 98; O2SAT 100
[2025-05-16] MEDS: NEPRO 1000 ML GT PRN (12:57)
[2025-05-16 15:42] VITALS: BP 103/55; TEMP 98; O2SAT 100
[2025-05-16 20:00] VITALS: BP 114/59; TEMP 99.1; O2SAT 98
[2025-05-17] VITALS: BP 157/77; TEMP 99.2; O2SAT 99
[2025-05-17 05:00] VITALS: BP 115/59; TEMP 97.4; O2SAT 99
[2025-05-17 06:21] LABS: PLATELET COUNT (AUTO) 98 K/uL (179-408); RED BLOOD CELL COUNT(AUTO) 2.53 MIL/uL (3.63-4.92); RED CELL DISTRIBUTION WIDTH 17.0 % (12.3-17.7); WHITE BLOOD COUNT (AUTO) 5.3 K/uL (3.8-11.8)
[2025-05-17 06:29] LABS: CREATININE 4.9 mg/dL (0.6-1.3); SODIUM SERUM 139.0 mmol/L (136-145); UREA NITROGEN, BLOOD 62.0 mg/dL (7-18)
[2025-05-17 07:44] VITALS: BP 120/61; TEMP 97.8; O2SAT 100
[2025-05-17 10:10] LABS: LYMPHOCYTES % (MANUAL) 18 % (20-40); MONOCYTES % (MANUAL) 11 % (2-10); NEUTROPHILS % (MANUAL) 67 % (42-75)
[2025-05-17 10:11] LABS: BASOPHILS % (MANUAL) 1 % (0-2); EOSINOPHILS % (MANUAL) 4 % (0-8); PLATELET ESTIMATE DECREASED
[2025-05-17 10:53] VITALS: BP 153/78; TEMP 97.8; O2SAT 100
[2025-05-17] MEDS ORDERED: METR-147 PO (11:17)
[2025-05-17] MEDS ORDERED: Nepro GT (11:17)
[2025-05-17] MEDS ORDERED: QUET25TA36 PO (11:17)
[2025-05-17] MEDS ORDERED: NUTR1PAC14 GT (11:17)
[2025-05-17] MEDS ORDERED: METH5TAB34 PO (11:17)
[2025-05-17] MEDS ORDERED: CLAR-45 PO (11:17)
[2025-05-17] MEDS ORDERED: EPOE1VIA12 SQ (11:17)
[2025-05-17] MEDS ORDERED: SUCR1ORA GT (11:17)
[2025-05-17] MEDS ORDERED: METR500T PO (13:07)
[2025-05-17] MEDS ORDERED: AMOX500T2 PO (13:07)
[2025-05-17 16:22] VITALS: BP 111/66; TEMP 97.6; O2SAT 95
[2025-05-17 19:00] VITALS: BP 125/70; TEMP 98.5; O2SAT 100
[2025-05-18 00:06] VITALS: BP 133/75; TEMP 99.2; O2SAT 100
[2025-05-18 04:44] VITALS: BP 147/74; TEMP 99.3; O2SAT 100
[2025-05-18 07:54] VITALS: BP 145/71; TEMP 98.7; O2SAT 100
[2025-05-18 10:54] LABS: PLATELET COUNT (AUTO) 110 K/uL (179-408); RED BLOOD CELL COUNT(AUTO) 2.51 MIL/uL (3.63-4.92); RED CELL DISTRIBUTION WIDTH 17.1 % (12.3-17.7); WHITE BLOOD COUNT (AUTO) 3.6 K/uL (3.8-11.8)
[2025-05-18 11:56] VITALS: BP 132/69; TEMP 99; O2SAT 100
[2025-05-18] MEDS: EPOETIN ALFA-EPBX 10,000 UNIT/ML VIAL SQ SCH (17:05)
[2025-05-18 19:30] VITALS: BP 148/64; TEMP 98.3; O2SAT 100
[2025-05-19 00:35] VITALS: BP 144/74; TEMP 97.8; O2SAT 100
[2025-05-19 06:00] VITALS: BP 147/76; TEMP 97.8; O2SAT 100
[2025-05-19 06:40] LABS: PLATELET COUNT (AUTO) 115 K/uL (179-408); RED CELL DISTRIBUTION WIDTH 16.8 % (12.3-17.7); WHITE BLOOD COUNT (AUTO) 3.2 K/uL (3.8-11.8)
[2025-05-19 07:02] LABS: RED BLOOD CELL COUNT(AUTO) 2.33 MIL/uL (3.63-4.92)
[2025-05-19 07:06] LABS: CREATININE 4.3 mg/dL (0.6-1.3); SODIUM SERUM 139.0 mmol/L (136-145); UREA NITROGEN, BLOOD 52.0 mg/dL (7-18)
[2025-05-19 07:49] VITALS: BP 139/67; TEMP 98; O2SAT 100
[2025-05-19 11:01] VITALS: BP 139/77; TEMP 98.1; O2SAT 100
[2025-05-19 14:56] VITALS: BP 150/74; TEMP 97.8; O2SAT 100
[2025-05-19 19:00] VITALS: BP 127/63; TEMP 98.9; O2SAT 100
[2025-05-20] VITALS (7 sets, daily range): BP systolic 116–143; BP diastolic 58–71; TEMP 98.7–99.1; O2SAT 93–100
[2025-05-20 06:47] LABS: PLATELET COUNT (AUTO) 126 K/uL (179-408); RED CELL DISTRIBUTION WIDTH 16.7 % (12.3-17.7); WHITE BLOOD COUNT (AUTO) 3.4 K/uL (3.8-11.8)
[2025-05-20 07:01] LABS: CREATININE 2.9 mg/dL (0.6-1.3); RED BLOOD CELL COUNT(AUTO) 2.37 MIL/uL (3.63-4.92); SODIUM SERUM 142.0 mmol/L (136-145); UREA NITROGEN, BLOOD 29.0 mg/dL (7-18)
[2025-05-20] MEDS: POTASSIUM CHLORIDE 20 MEQ POWDER PACKET GT ONE (08:32)
[2025-05-21] VITALS (9 sets, daily range): BP systolic 91–153; BP diastolic 25–85; TEMP 97.8–99.6; O2SAT 97–100
[2025-05-21 07:08] LABS: CREATININE 3.8 mg/dL (0.6-1.3); PLATELET COUNT (AUTO) 142 K/uL (179-408); RED CELL DISTRIBUTION WIDTH 17.2 % (12.3-17.7); SODIUM SERUM 142.0 mmol/L (136-145); UREA NITROGEN, BLOOD 46.0 mg/dL (7-18); WHITE BLOOD COUNT (AUTO) 3.0 K/uL (3.8-11.8)
[2025-05-21 07:27] LABS: RED BLOOD CELL COUNT(AUTO) 2.28 MIL/uL (3.63-4.92)
[2025-05-21 07:31] LABS: EOSINOPHILS % (MANUAL) 5 % (0-8); LYMPHOCYTES % (MANUAL) 26 % (20-40); MONOCYTES % (MANUAL) 16 % (2-10); NEUTROPHILS % (MANUAL) 53 % (42-75); PLATELET ESTIMATE DECREASED
[2025-05-22] VITALS (8 sets, daily range): BP systolic 112–158; BP diastolic 62–84; TEMP 97.3–99.8; O2SAT 98–100
[2025-05-22 06:50] LABS: PLATELET COUNT (AUTO) 169 K/uL (179-408); RED BLOOD CELL COUNT(AUTO) 2.87 MIL/uL (3.63-4.92); RED CELL DISTRIBUTION WIDTH 16.6 % (12.3-17.7); WHITE BLOOD COUNT (AUTO) 4.0 K/uL (3.8-11.8)
[2025-05-22 07:27] LABS: CREATININE 2.4 mg/dL (0.6-1.3); SODIUM SERUM 138.0 mmol/L (136-145); UREA NITROGEN, BLOOD 20.0 mg/dL (7-18)
[2025-05-22] MEDS: POTASSIUM CHLORIDE 20 MEQ POWDER PACKET GT ONE (11:23)
[2025-05-22 14:49] LABS: LYMPHOCYTES % (MANUAL) 0 % (20-40); NEUTROPHILS % (MANUAL) 0 % (42-75)
== END 2025-05-22 12:55 | DRG 870 ==
LOC: ER 18:25 → CCU 20:31 → UNDOADMIN 20:45 → CCU 20:45 → UNDOADMIN 04-08 11:05 → CCU 04-08 11:05 → ICU IN 04-09 05:30 → CCU 04-09 05:30 → ICU IN 04-09 17:32 → CCU 04-09 17:32 → ICU IN 04-18 16:05 → CCU 04-18 16:05 → ICU IN 04-19 16:43 → CCU 04-19 16:43 → ICU IN 04-26 19:00 → CCU 05-01 08:54 → TELE-TD3 05-07 18:14 → CCU 05-07 18:14 → TELE-TD3 05-09 14:41 → TELE3 05-09 14:41 → UNDODISIN 05-22 12:55
PROVIDERS: ADMIT Student in an Organized Health Care Education/Training Program; ATTEND Student in an Organized Health Care Education/Training Program
PROC: 05HF33Z Insertion of Infusion Device into Left Cephalic Vein, Percutaneous Approach (ICD-10-PCS; principal; 2025-04-08)
PROC: 5A1955Z Respiratory Ventilation, Greater than 96 Consecutive Hours (ICD-10-PCS; 2025-04-08)
PROC: 5A1D70Z Performance of Urinary Filtration, Intermittent, Less than 6 Hours Per Day (ICD-10-PCS; 2025-04-12)
PROC: 02HV33Z Insertion of Infusion Device into Superior Vena Cava, Percutaneous Approach (ICD-10-PCS; 2025-04-29)
PROC: 30233N1 Transfusion of Nonautologous Red Blood Cells into Peripheral Vein, Percutaneous Approach (ICD-10-PCS; 2025-04-30)
PROC: 0DB68ZX Excision of Stomach, Via Natural or Artificial Opening Endoscopic, Diagnostic (ICD-10-PCS; 2025-05-01)
PROC: 30243N1 Transfusion of Nonautologous Red Blood Cells into Central Vein, Percutaneous Approach (ICD-10-PCS; 2025-05-11)
PROC: 0DB68ZX Excision of Stomach, Via Natural or Artificial Opening Endoscopic, Diagnostic (ICD-10-PCS; 2025-05-12)
DX: A41.52 Sepsis due to Pseudomonas (principal); J96.21 Acute and chronic respiratory failure with hypoxia; G92.8 Other toxic encephalopathy; N18.6 End stage renal disease; J96.20 Acute and chronic respiratory failure, unspecified whether with hypoxia or hypercapnia; R65.21 Severe sepsis with septic shock; K22.11 Ulcer of esophagus with bleeding; K21.01 Gastro-esophageal reflux disease with esophagitis, with bleeding; I50.33 Acute on chronic diastolic (congestive) heart failure; J69.0 Pneumonitis due to inhalation of food and vomit; G82.50 Quadriplegia, unspecified; D62 Acute posthemorrhagic anemia; J95.851 Ventilator associated pneumonia; Z99.11 Dependence on respirator [ventilator] status; E44.0 Moderate protein-calorie malnutrition; I13.2 Hypertensive heart and chronic kidney disease with heart failure and with stage 5 chronic kidney disease, or end stage renal disease; E87.1 Hypo-osmolality and hyponatremia; G12.21 Amyotrophic lateral sclerosis; Z16.24 Resistance to multiple antibiotics; J98.11 Atelectasis; M48.54XA Collapsed vertebra, not elsewhere classified, thoracic region, initial encounter for fracture; D68.59 Other primary thrombophilia; I48.20 Chronic atrial fibrillation, unspecified; Z22.322 Carrier or suspected carrier of Methicillin resistant Staphylococcus aureus; K21.9 Gastro-esophageal reflux disease without esophagitis; Z93.0 Tracheostomy status; K29.70 Gastritis, unspecified, without bleeding; D63.1 Anemia in chronic kidney disease; S30.0XXA Contusion of lower back and pelvis, initial encounter; X58.XXXA Exposure to other specified factors, initial encounter; Y92.129 Unspecified place in nursing home as the place of occurrence of the external cause; Y99.8 Other external cause status; E66.9 Obesity, unspecified; B96.83 Acinetobacter baumannii as the cause of diseases classified elsewhere; B96.81 Helicobacter pylori [H. pylori] as the cause of diseases classified elsewhere; E87.6 Hypokalemia; E78.5 Hyperlipidemia, unspecified; E83.42 Hypomagnesemia; E83.39 Other disorders of phosphorus metabolism; E11.51 Type 2 diabetes mellitus with diabetic peripheral angiopathy without gangrene; E11.65 Type 2 diabetes mellitus with hyperglycemia; E11.22 Type 2 diabetes mellitus with diabetic chronic kidney disease; E07.9 Disorder of thyroid, unspecified; I95.9 Hypotension, unspecified; E88.09 Other disorders of plasma-protein metabolism, not elsewhere classified; G40.909 Epilepsy, unspecified, not intractable, without status epilepticus; I35.8 Other nonrheumatic aortic valve disorders; I65.22 Occlusion and stenosis of left carotid artery; Z89.512 Acquired absence of left leg below knee; Z71.3 Dietary counseling and surveillance; Z88.4 Allergy status to anesthetic agent; Z88.5 Allergy status to narcotic agent; Z88.8 Allergy status to other drugs, medicaments and biological substances; Z79.4 Long term (current) use of insulin; Z79.82 Long term (current) use of aspirin; Z79.899 Other long term (current) drug therapy; Z86.73 Personal history of transient ischemic attack (TIA), and cerebral infarction without residual deficits; Z99.2 Dependence on renal dialysis; Z87.39 Personal history of other diseases of the musculoskeletal system and connective tissue; Z79.01 Long term (current) use of anticoagulants
CPT/HCPCS: 36415; 36569; 36600; 70030-TC; 71045; 71250; 71260; 71275; 74018; 82803; 83605; 83735; 84100; 84443; 84484; 85018; 85025; 85049; 85610; 86706; 86850; 86900; 86901; 86920; 87040; 87070; 87077; 87340; 88313-TC; 88342; 90937; 93005; 93307; 94002; 94003; 94640; 94760; 99082-TC; A4606; A4663; A6209; A6213; C1758; G0378; J0153; J0692; J0713; J0885; J1200; J1720; J1815; J1956; J2060; J2248; J2405; J2470; J2543; J2597; J2765; J3373; J3475; J3480; J3490; J3590; J7040; J7050; J7120; P9016; P9047; Q9967

== ENCOUNTER 2025-06-27 19:25 | Inpatient (IN) | payer MEDICARE, OTHER ==
[~2025-06-27] VITALS: Ht 165.1 cm; Wt 69.5 kg
[~2025-06-27 19:25] MED LIST changes: +ACET-3117 GT; +AMIN30LI27 GT; +AMOX500T2 PO; -ASPI-495 PO; +B COMPLEX WITH FOLIC GT; +BISA10SU61 RC; -CINA30TA2 PO; +CLAR-45 PO; -DOCU-141 PO; +DOCU-286 GT; -DULO20CA19 PO; +EPOE1VIA12 SQ; +ESOM40CA GT; +GLUC1KIT IM; -HYDR-3980 PO; +INSU100C4 SQ; +INSU100V7 SQ; +IPRA3AMP22 IH; +METH5TAB34 PO; +METR500T PO; +MIDO5TAB5 GT; -MIDO5TAB5 PO; +NUTR1PAC14 GT; +Nepro GT; -ONDA4TAB5 PO; +QUET25TA36 PO; -SEVE800T8 PO; -SODI5POW2 PO; +SUCR1ORA GT; +ZINC220T4 GT
[2025-06-27 20:13] LABS: *OCCULT BLOOD STOOL POSITIVE (NEGATIVE)
[2025-06-27 20:17] LABS: PLATELET COUNT (AUTO) 184 K/uL (179-408); RED BLOOD CELL COUNT(AUTO) 3.76 MIL/uL (3.63-4.92); RED CELL DISTRIBUTION WIDTH 16.7 % (12.3-17.7); WHITE BLOOD COUNT (AUTO) 6.2 K/uL (3.8-11.8)
[2025-06-27 20:23] LABS: CREATININE 2.5 mg/dL (0.6-1.3); SODIUM SERUM 135.0 mmol/L (136-145); UREA NITROGEN, BLOOD 26.0 mg/dL (7-18)
[2025-06-27 20:29] LABS: ASPARTATE AMINOTRANSFERASE 19.0 U/L (15-37); TOTAL PROTEIN, SERUM 8.2 g/dL (6.4-8.2)
[2025-06-27 20:59] LABS: LACTIC ACID 2.1 mmol/L (0.4-2.0)
[2025-06-27] MEDS ORDERED: LORAZEPAM 2 MG/1 ML VIAL ONE (21:04)
[2025-06-27] MEDS ORDERED: K PHOS NEUTRAL GT (21:08)
[2025-06-27] MEDS ORDERED: [UNRECOGNIZED DRUG - OTHER] GT (21:08)
[2025-06-27] MEDS ORDERED: VIT500LI GT (21:08)
[2025-06-27] MEDS ORDERED: SUCR1TAB GT (21:08)
[2025-06-27] MEDS: IV NS 1000 ML 1,000 ML IV ONE (21:20)
[2025-06-27] MEDS: PANTOPRAZOLE SODIUM 40 MG VIAL IV ONE ×2 (21:20)
[2025-06-27] MEDS: LORAZEPAM 2 MG/1 ML VIAL IV ONE (21:20)
[2025-06-27] MEDS: PANTOPRAZOLE SODIUM IV 80 MG in IV DEXTROSE 5% 500 ML IV ONE (21:21)
[2025-06-27] MEDS ORDERED: ACETAMINOPHEN 325 MG TABLET PO PRN (21:30)
[2025-06-27] MEDS ORDERED: MAGNESIUM HYDROXIDE 30 ML LIQUID UDC PO PRN (21:30)
[2025-06-27] MEDS ORDERED: REMEDY ESSENTIAL ZINC PASTE 113 GM TP PRN (21:30)
[2025-06-27] MEDS ORDERED: MIDODRINE HCL 5 MG TABLET GT PRN (21:30)
[2025-06-27] MEDS ORDERED: DEXTROSE 50% 50 ML DISP.SYRIN IV PRN (21:45)
[2025-06-28 00:15] VITALS: BP 145/85; TEMP 97.9; O2SAT 90
[2025-06-28] MEDS: SUCRALFATE 1 G TABLET GT SCH (00:45)
[2025-06-28] MEDS: BLOOD SUGAR DIAGNOSTIC 1 EACH STRIP VI SCH (00:45)
[2025-06-28] MEDS: IPRATROPIUM BROMIDE 0.5 MG/2.5 ML NEBU NEB SCH (01:30)
[2025-06-28] MEDS: ALBUTEROL SULFATE 2.5 MG/3 ML NEBU NEB SCH (01:30)
[2025-06-28] MEDS ORDERED: PANTOPRAZOLE SODIUM 40 MG VIAL ONE (02:03)
[2025-06-28 04:33] VITALS: BP 143/75; TEMP 98.3; O2SAT 99
[2025-06-28 06:45] LABS: PLATELET COUNT (AUTO) 187 K/uL (179-408); RED BLOOD CELL COUNT(AUTO) 3.84 MIL/uL (3.63-4.92); RED CELL DISTRIBUTION WIDTH 16.6 % (12.3-17.7); WHITE BLOOD COUNT (AUTO) 9.1 K/uL (3.8-11.8)
[2025-06-28 07:07] LABS: ASPARTATE AMINOTRANSFERASE 23.0 U/L (15-37); CREATININE 2.8 mg/dL (0.6-1.3); SODIUM SERUM 133.0 mmol/L (136-145); TOTAL PROTEIN, SERUM 8.8 g/dL (6.4-8.2); UREA NITROGEN, BLOOD 31.0 mg/dL (7-18)
[2025-06-28 08:01] VITALS: BP 116/68; TEMP 98.3; O2SAT 100
[2025-06-28] MEDS: METHIMAZOLE 5 MG TABLET PO SCH (09:00)
[2025-06-28] MEDS: DOCUSATE SODIUM 100 MG CAPSULE PO SCH (09:00)
[2025-06-28] MEDS: QUETIAPINE FUMARATE 25 MG TABLET PO SCH (09:00)
[2025-06-28] MEDS: ASCORBIC ACID 500 MG TABLET GT SCH (09:00)
[2025-06-28] MEDS: PANTOPRAZOLE SODIUM 40 MG VIAL IV SCH (10:27)
[2025-06-28] MEDS ORDERED: METH10TA80 PO (10:37)
[2025-06-28] MEDS ORDERED: FOLI0.8T23 PO (10:41)
[2025-06-28] MEDS ORDERED: ACET325T53 PO (10:42)
[2025-06-28 11:29] LABS: ABG BASE EXCESS 2.3 mmol/L (-2.0-3.0); ABG HCO3 27.4 mmol/L (21.0-28.0); ABG PCO2 44.6 mmHg (32.0-45.0); ABG PH 7.407 (7.350-7.450); ABG PO2 402.1 mmHg (83.0-108.0); ABG SITE LEFT BRACHIAL; ABG TOTAL HEMOGLOBIN 12.1 G/dL (12.0-16.0); AaDO2 99.8 mmHg; FIO2 100.0 %; PEEP,BG 5.0 cmH20; SET RATE, BG 12.0; VT, ABG 300 mL
[2025-06-28] MEDS: ALBUMIN HUMAN 25% 50 ML IV PRN (11:47)
[2025-06-28] MEDS: INSULIN REGULAR, HUMAN 1000 UNIT/10 ML VIAL SQ PRN (11:51)
[2025-06-28 16:19] VITALS: BP 115/71; TEMP 98; O2SAT 99
[2025-06-28 19:53] VITALS: BP 119/45; TEMP 98.4; O2SAT 99
[2025-06-28] MEDS ORDERED: EPINEPHRINE 1:10,000 1 MG/10 ML DISP.SYRIN ONE (20:19)
[2025-06-28] MEDS ORDERED: PROPOFOL 200 MG/20 ML BOTTLE ONE (20:30)
[2025-06-28 21:48] VITALS: BP 102/49
[2025-06-28] MEDS: NEPRO 1000 ML GT PRN (23:13)
[2025-06-29 00:21] VITALS: BP 105/51; TEMP 98.9; O2SAT 99
[2025-06-29 04:25] VITALS: BP 107/49; TEMP 98.6; O2SAT 100
[2025-06-29 06:51] LABS: PLATELET COUNT (AUTO) 165 K/uL (179-408); RED BLOOD CELL COUNT(AUTO) 3.40 MIL/uL (3.63-4.92); RED CELL DISTRIBUTION WIDTH 16.3 % (12.3-17.7); WHITE BLOOD COUNT (AUTO) 5.7 K/uL (3.8-11.8)
[2025-06-29 07:01] LABS: CREATININE 2.5 mg/dL (0.6-1.3); SODIUM SERUM 138.0 mmol/L (136-145); UREA NITROGEN, BLOOD 24.0 mg/dL (7-18)
[2025-06-29 08:00] VITALS: BP 109/40; TEMP 99; O2SAT 97
[2025-06-29 08:25] LABS: ABG BASE EXCESS 6.5 mmol/L (-2.0-3.0); ABG HCO3 30.9 mmol/L (21.0-28.0); ABG PCO2 44.0 mmHg (32.0-45.0); ABG PH 7.465 (7.350-7.450); ABG PO2 131.6 mmHg (83.0-108.0); ABG TOTAL HEMOGLOBIN 10.2 G/dL (12.0-16.0); AaDO2 98.8 mmHg; FIO2 40.0 %; PEEP,BG 5.0 cmH20; SET RATE, BG 12.0; VT, ABG 300 mL
[2025-06-29 11:07] LABS: HEPATITIS B CORE AB, TOTAL Negative (Negative); HEPATITIS B SURFACE AB, QUAL Reactive (.); HEPATITIS B SURFACE AG Negative (Negative)
[2025-06-29 12:00] VITALS: BP 130/90; TEMP 98.2; O2SAT 98
[2025-06-29] MEDS: POTASSIUM PHOSPHATE MM 15 MMOL in IV NORMAL SALINE 250 ML IV ONE (15:53)
[2025-06-29 16:14] VITALS: BP 116/64; TEMP 97.8; O2SAT 100
[2025-06-29 19:36] VITALS: BP 97/60; TEMP 99.2; O2SAT 100
[2025-06-30 05:36] VITALS: BP 101/59; TEMP 99.5; O2SAT 99
[2025-06-30 08:07] VITALS: TEMP 99.5; O2SAT 100
[2025-06-30 15:45] VITALS: BP 118/72; TEMP 99; O2SAT 100
== END 2025-06-30 16:45 | DRG 377 ==
LOC: ER 20:04 → TELE3 22:00 → MEDSURG3 06-29 09:30
PROVIDERS: ADMIT Nurse Practitioner Acute Care; ATTEND Nurse Practitioner Acute Care
PROC: 5A1945Z Respiratory Ventilation, 24-96 Consecutive Hours (ICD-10-PCS; 2025-06-27)
PROC: 5A1D70Z Performance of Urinary Filtration, Intermittent, Less than 6 Hours Per Day (ICD-10-PCS; 2025-06-28)
PROC: 0DJ08ZZ Inspection of Upper Intestinal Tract, Via Natural or Artificial Opening Endoscopic (ICD-10-PCS; principal; 2025-06-28 20:30)
DX: K29.71 Gastritis, unspecified, with bleeding (principal); G93.41 Metabolic encephalopathy; R53.2 Functional quadriplegia; N18.6 End stage renal disease; I13.2 Hypertensive heart and chronic kidney disease with heart failure and with stage 5 chronic kidney disease, or end stage renal disease; Z99.11 Dependence on respirator [ventilator] status; J96.11 Chronic respiratory failure with hypoxia; Z99.2 Dependence on renal dialysis; Z93.0 Tracheostomy status; G12.21 Amyotrophic lateral sclerosis; I69.354 Hemiplegia and hemiparesis following cerebral infarction affecting left non-dominant side; E05.90 Thyrotoxicosis, unspecified without thyrotoxic crisis or storm; I50.32 Chronic diastolic (congestive) heart failure; R00.1 Bradycardia, unspecified; Z93.1 Gastrostomy status; Z89.512 Acquired absence of left leg below knee; Z87.19 Personal history of other diseases of the digestive system; Z87.11 Personal history of peptic ulcer disease; Z88.5 Allergy status to narcotic agent; R13.10 Dysphagia, unspecified; K21.9 Gastro-esophageal reflux disease without esophagitis; E87.6 Hypokalemia; I48.0 Paroxysmal atrial fibrillation; Z79.4 Long term (current) use of insulin
CPT/HCPCS: 36415; 36600; 71045; 76604; 82803; 83605; 83735; 84100; 84443; 85025; 85730; 86704; 86706; 86850; 86900; 86901; 87040; 87340; 94002; 94003; 94640; 94760; 99082-TC; A4606; A4663; A6213; G0378; J0169; J1815; J2060; J2470; J3490; J3590; J7040; J7060; P9047

== ENCOUNTER 2025-07-25 19:35 | Emergency (ER) | payer MEDICARE, OTHER ==
[~2025-07-25] VITALS: Ht 165.1 cm; Wt 63.5 kg
[~2025-07-25 19:35] MED LIST changes: -ACET-3117 GT; +ACET-3752 PO; -AMOX500T2 PO; -CLAR-45 PO; -EPOE1VIA12 SQ; +FOLI0.8T23 PO; -GLUC1KIT IM; +GLUC1VIA21 IM; +K PHOS NEUTRAL GT; +METH10TA80 PO; -METH5TAB34 PO; -METR500T PO; -Nepro GT; -SUCR1ORA GT; +SUCR1TAB GT; +VIT500LI GT; +[UNRECOGNIZED DRUG - OTHER] GT
[2025-07-25 19:59] LABS: PLATELET COUNT (AUTO) 185 K/uL (179-408); RED BLOOD CELL COUNT(AUTO) 3.10 MIL/uL (3.63-4.92); RED CELL DISTRIBUTION WIDTH 19.4 % (12.3-17.7); WHITE BLOOD COUNT (AUTO) 5.1 K/uL (3.8-11.8)
[2025-07-25 20:09] LABS: CREATININE 2.5 mg/dL (0.6-1.3); SODIUM SERUM 146.0 mmol/L (136-145); UREA NITROGEN, BLOOD 17.0 mg/dL (7-18)
[2025-07-25 20:13] LABS: ASPARTATE AMINOTRANSFERASE 17.0 U/L (15-37); TOTAL PROTEIN, SERUM 7.8 g/dL (6.4-8.2)
[2025-07-25 20:38] LABS: EOSINOPHILS % (MANUAL) 6 % (0-8); LYMPHOCYTES % (MANUAL) 20 % (20-40); MONOCYTES % (MANUAL) 5 % (2-10); NEUTROPHILS % (MANUAL) 69 % (42-75)
[2025-07-25 20:39] LABS: PLATELET ESTIMATE ADEQUATE
[2025-07-26 00:05] VITALS: BP 143/74
[2025-07-26 01:38] VITALS: BP 143/74; TEMP 98; O2SAT 100
== END 2025-07-26 01:39 ==
LOC: ER 19:35
DX: J96.10 Chronic respiratory failure, unspecified whether with hypoxia or hypercapnia (principal); E11.9 Type 2 diabetes mellitus without complications; I51.9 Heart disease, unspecified; Z79.4 Long term (current) use of insulin; Z79.899 Other long term (current) drug therapy; Z86.16 Personal history of COVID-19; Z86.73 Personal history of transient ischemic attack (TIA), and cerebral infarction without residual deficits; Z88.5 Allergy status to narcotic agent; Z88.8 Allergy status to other drugs, medicaments and biological substances; Z89.512 Acquired absence of left leg below knee; Z93.0 Tracheostomy status; Z99.11 Dependence on respirator [ventilator] status
CPT/HCPCS: 36415; 70030-TC; 83735; 85610; 86850; 86900; 86901; A4606; A4663